=== PATIENT | male | born 1940 | race Caucasian/White ===

== ENCOUNTER 2019-01-14 11:59 | Observation (INO) | payer MEDICARE ==
[2019-01-14] MEDS ORDERED: Sodium Chloride 0.9% 10 ML Syringe FLUSH PRN (12:07)
[2019-01-14] MEDS ORDERED: Nitroglycerin 2% Oint 1 GM UD Packet TOP ONE (12:07)
[2019-01-14] MEDS ORDERED: Sodium Chloride 0.9% 2.5 ML Syringe FLUSH PRN (12:07)
--- NOTE | 2019-01-14 12:10 | EDM.PDOC ---
ED HPI GENERAL MEDICAL PROBLEM - General Chief Complaint: Chest Pain Stated Complaint: POSSIBLE HEART ATTACK Time Seen by Provider: 01/14/19 12:05 - History of Present Illness INITIAL COMMENTS - FREE TEXT/NARRATIVE: HISTORY AND PHYSICAL: History of present illness: Patient is a 78-year-old white male with a history of coronary artery disease including prior myocardial infarction presents with concern of substernal chest tightness with associated diaphoresis that awoke him from sleep he took one nitroglycerin and this decreased significantly still is mild discomfort on arrival here he states improved dramatically patient took aspirin prior to arrival Review of systems: As per history of present illness and below otherwise all systems reviewed and negative. Past medical history: As per history of present illness and as reviewed below otherwise noncontributory. Surgical history: As per history of present illness and as reviewed below otherwise noncontributory. Social history: No reported history of drug or alcohol abuse. Family history: As per history of present illness and as reviewed below otherwise noncontributory. Physical exam: HEENT: Atraumatic, normocephalic, pupils reactive, negative for conjunctival pallor or scleral icterus, mucous membranes moist, throat clear, neck supple, nontender, trachea midline. Lungs: Clear to auscultation, breath sounds equal bilaterally, chest nontender. Heart: S1S2, regular, negative for clicks, rubs, or JVD. Abdomen: Soft, nondistended, nontender. Negative for masses or hepatosplenomegaly. Negative for costovertebral tenderness. Pelvis: Stable nontender. Genitourinary: Deferred. Rectal: Deferred. Extremities: Atraumatic, negative for cords or calf pain. Neurovascular unremarkable. Neuro: Awake, alert, oriented. Cranial nerves II through XII unremarkable. Cerebellum unremarkable. Motor and sensory unremarkable throughout. Exam nonfocal. Diagnostics: CBC CMP. Troponin PT/INR chest x-ray EKG Therapeutics: IV O2 monitor Nitropaste 1 inch to chest wall Impression: 1 chest pain #2 history of prior DE Definitive disposition and diagnosis as appropriate pending reevaluation and review of above. - Related Data Allergies Allergy/AdvReac Type Severity Reaction Status Date / Time No Known Allergies Allergy Verified 01/14/19 12:09 Home Meds: Home Meds . [Unable to Verify Home Med List] 01/14/19 [History] ED ROS GENERAL - Review of Systems Review Of Systems: ROS reveals no pertinent complaints other than HPI. ED EXAM, GENERAL - Physical Exam Exam: See Below (See dictation) Course - Vital Signs Last Recorded V/S: Last Vital Signs Temp 35.8 C 01/14/19 12:04 Pulse 77 01/14/19 12:35 Resp 13 01/14/19 12:35 BP 93/52 L 01/14/19 12:35 Pulse Ox 97 01/14/19 12:35 - Orders/Labs/Meds Orders: Active Orders 24 hr Category Date Time Status Cardiac Monitoring [RC] . DIRECTED Care 01/14/19 12:07 Active EKG Documentation Completion [RC] STAT Care 01/14/19 12:07 Active Oxygen Therapy, ED [RC] ASDIRECTED Care 01/14/19 12:07 Active Pulse Oximetry [RC] ASDIRECTED Care 01/14/19 12:07 Active Sodium Chloride 0.9% [Normal Saline] 1,000 ml Med 01/14/19 12:15 Active IV STAT Sodium Chloride 0.9% [Saline Flush] Med 01/14/19 12:07 Active 10 ml FLUSH ASDIRECTED PRN Sodium Chloride 0.9% [Saline Flush] Med 01/14/19 12:07 Active 2.5 ml FLUSH ASDIRECTED PRN Saline Lock Insert [OM.PC] Stat Oth 01/14/19 12:07 Ordered Medication Orders Sodium Chloride (Normal Saline) 1,000 mls @ 125 mls/hr IV STAT ANNA Last Admin: 01/14/19 12:14 Dose: 125 mls/hr Sodium Chloride (Saline Flush) 10 ml FLUSH ASDIRECTED PRN PRN Reason: Keep Vein Open Last Admin: 01/14/19 12:14 Dose: 10 ml Sodium Chloride (Saline Flush) 2.5 ml FLUSH ASDIRECTED PRN PRN Reason: Keep Vein Open Last Admin: 01/14/19 12:14 Dose: 2.5 ml Labs: Laboratory Tests 01/14/19 01/14/19 01/14/19 Range/Units 12:03 12:03 12:03 WBC 9.83 (4.0-11.0) K/uL RBC 4.50 (4.50-5.90) M/uL Hgb 14.2 (13.0-17.0) g/dL Hct 42.3 (38.0-50.0) % MCV 94.0 (80.0-98.0) fL MCH 31.6 (27.0-32.0) pg MCHC 33.6 (31.0-37.0) g/dL RDW Std Deviation 47.2 (28.0-62.0) fl RDW Coeff of Augusto 14 (11.0-15.0) % Plt Count 140 L (150-400) K/uL MPV 11.00 (7.40-12.00) fL Neut % (Auto) 69.3 (48.0-80.0) % Lymph % (Auto) 17.9 (16.0-40.0) % [place] % (Auto) 10.4 (0.0-15.0) % Eos % (Auto) 2.2 (0.0-7.0) % Baso % (Auto) 0.2 (0.0-1.5) % Neut # (Auto) 6.8 H (1.4-5.7) K/uL Lymph # (Auto) 1.8 (0.6-2.4) K/uL [place] # (Auto) 1.0 H (0.0-0.8) K/uL Eos # (Auto) 0.2 (0.0-0.7) K/uL Baso # (Auto) 0.0 (0.0-0.1) K/uL Nucleated RBC % 0.0 /100WBC Nucleated RBCs # 0 K/uL INR 0.97 Sodium 141 (136-148) mmol/L Potassium 3.7 (3.5-5.1) mmol/L Chloride 109 H (98-107) mmol/L Carbon Dioxide 20.6 L (21.0-32.0) mmol/L BUN 15 (7.0-18.0) mg/dL Creatinine 1.1 (0.8-1.3) mg/dL Est Cr Clr Drug Dosing 52.68 mL/min Estimated GFR (MDRD) > 60.0 ml/min Glucose 121 H (74-106) mg/dL Calcium 8.9 (8.5-10.1) mg/dL Total Bilirubin 4.3 H (0.2-1.0) mg/dL AST 240 H (15-37) IU/L ALT 321 H (14-63) IU/L Alkaline Phosphatase 294 H (46-116) U/L Troponin I < 0.050 (0.000-0.056) ng/mL Total Protein 7.0 (6.4-8.2) g/dL Albumin 3.2 L (3.4-5.0) g/dL Globulin 3.8 (2.6-4.0) g/dL Albumin/Globulin Ratio 0.8 L (0.9-1.6) Meds: Medications Generic Name Dose Route Start Last Admin Trade Name Freq PRN Reason Stop Dose Admin Sodium Chloride 1,000 mls @ 125 mls/hr 01/14/19 12:15 01/14/19 12:14 Normal Saline IV 125 mls/hr STAT ANNA Administration Sodium Chloride 10 ml 01/14/19 12:07 01/14/19 12:14 Saline Flush FLUSH 10 ml ASDIRECTED PRN Administration Keep Vein Open Sodium Chloride 2.5 ml 01/14/19 12:07 01/14/19 12:14 Saline Flush FLUSH 2.5 ml ASDIRECTED PRN Administration Keep Vein Open Discontinued Medications Generic Name Dose Route Start Last Admin Trade Name Freq PRN Reason Stop Dose Admin Nitroglycerin 1 gm 01/14/19 12:07 01/14/19 12:14 Nitro-Bid 2% TOP 01/14/19 12:08 1 gm ONETIME ONE Administration Departure - Departure Time of Disposition: 13:19 Disposition: Refer to Observation Condition: Good Clinical Impression: Chest pain, Elevated liver function tests - Discharge Information Forms: ED Department Discharge - My Orders Last 24 Hours: My Active Orders 01/14/19 12:07 Cardiac Monitoring [RC] . DIRECTED EKG Documentation Completion [RC] STAT Oxygen Therapy, ED [RC] ASDIRECTED Pulse Oximetry [RC] ASDIRECTED Sodium Chloride 0.9% [Saline Flush] 10 ml FLUSH ASDIRECTED PRN Sodium Chloride 0.9% [Saline Flush] 2.5 ml FLUSH ASDIRECTED PRN Saline Lock Insert [OM.PC] Stat 01/14/19 12:15 Sodium Chloride 0.9% [Normal Saline] 1,000 ml IV STAT - Assessment/Plan Last 24 Hours: My Active Orders 01/14/19 12:07 Cardiac Monitoring [RC] . DIRECTED EKG Documentation Completion [RC] STAT Oxygen Therapy, ED [RC] ASDIRECTED Pulse Oximetry [RC] ASDIRECTED Sodium Chloride 0.9% [Saline Flush] 10 ml FLUSH ASDIRECTED PRN Sodium Chloride 0.9% [Saline Flush] 2.5 ml FLUSH ASDIRECTED PRN Saline Lock Insert [OM.PC] Stat 01/14/19 12:15 Sodium Chloride 0.9% [Normal Saline] 1,000 ml IV STAT
[2019-01-14] MEDS ORDERED: Sodium Chloride 0.9% 1,000 ML IV SCH (12:15)
[2019-01-14 12:42] LABS: CHLORIDE,CL 109 mmol/L (98-107); SODIUM,NA 141 mmol/L (136-148)
--- NOTE | 2019-01-14 13:09 | CR ---
EXAMINATION: Portable chest radiograph. HISTORY: Shortness of breath. FINDINGS: The trachea is midline. The heart is normal in size. There is a fullness within the right infrahilar region. No pulmonary infiltrates, effusions or pneumothorax. Osseous structures appear unremarkable. IMPRESSION: 1. No definite acute cardiopulmonary process. 2. Fullness of the right infrahilar region, correlation with a chest CT may be beneficial.
[2019-01-14] MEDS ORDERED: Ondansetron 4 MG/2 ML SDV IVPUSH PRN (15:38)
--- NOTE | 2019-01-14 15:47 | PCM.HP ---
H&P History of Present Illness - General Date of Service: 01/14/19 Admit Problem/Dx: Admission Diagnosis/Problem Admission Diagnosis/Problem Chest pain Source of Information: Patient History Limitations: Reports: No Limitations - History of Present Illness Initial Comments - Free Text/Narative: This 78 year old male with pmh of CAD with stenting in 2016, HTN, BPH presented to the ED with complaints of chest pain that started a couple days ago and has progressively worsened. He reports the pain starts in his abdomen and moves up to his chest. He denies fevers or chills, no other abdominal pain, no nausea or vomiting. No black or bloody BMs. He denies urinary concerns. He denies alcohol use and no Tylenol use. he denies having gallbladder issues and no cancer history for him. He reports the pain just went away, he is unsure what helped it , "something they did in the ED." He reports his TX was pain in his left shoulder and this does not feel like that. He has been eating and drinking just fine, no distension or bloating after eating. In the ED no leukocytosis noted, Platelets 140, INR 0.97, Cl 109, glucose 121, Bilirubin 4.3 AST 240, ALT 321, Alk phos 294. EKG SR with no acute ST changes. He was given nitro paste in the ED, pressures dropped to 80-90/40-50s. NS 125 given as well. CXR reports fullness to R infrahilar region, recommend CT to further evaluate. he will be admitted with chest pain and elevated LFTs. Mid-Sternal Chest Pain Score (Numeric/FACES): 5 - Related Data Allergies/Adverse Reactions: Allergies Allergy/AdvReac Type Severity Reaction Status Date / Time No Known Allergies Allergy Verified 01/14/19 16:22 Home Medications: Home Meds Aspirin [Low Dose Aspirin EC] 81 mg PO DAILY #30 tablet. 01/14/19 [Rx] Past Medical History HEENT History: Reports: Hard of Hearing Cardiovascular History: Reports: CAD, Hypertension, TX, Stents Respiratory History: Reports: None. Denies: Asthma, COPD Gastrointestinal History: Reports: None. Denies: GERD, Hepatitis Genitourinary History: Reports: BPH, Renal Calculus Musculoskeletal History: Reports: None Neurological History: Reports: None. Denies: CVA, TIA Endocrine/Metabolic History: Denies: Diabetes, Type II, Hypothyroidism - Infectious Disease History Infectious Disease History: Reports: Chicken Pox, Measles, Mumps - Past Surgical History Cardiovascular Surgical History: Reports: Coronary Artery Stent Social & Family History - Family History Family Medical History: Noncontributory Cardiac: Reports: TX Other Cardiac Family History: Both parents and all 7 siblings have had TX's. - Tobacco Use Smoking Status *Q: Never Smoker - Caffeine Use Caffeine Use: Reports: Coffee Other Caffeine Use: 2 cups/day - Alcohol Use Alcohol Use History: No - Recreational Drug Use Recreational Drug Use: No - Living Situation & Occupation Living situation: Reports: Occupation: Retired H&P Review of Systems - Review of Systems: Review Of Systems: See Below General: Reports: No Symptoms. Denies: Fever, Chills, Malaise, Weakness HEENT: Reports: No Symptoms. Denies: Headaches, Sinus Congestion Pulmonary: Reports: Shortness of Breath (intermittent with pain) Cardiovascular: Reports: Chest Pain Gastrointestinal: Reports: Abdominal Pain (pain starts in abdomen and moves up to chest). Denies: Black Stool, Bloody Stool, Diarrhea, Decreased Appetite, Distension, Nausea, Vomiting Genitourinary: Reports: No Symptoms. Denies: Dysuria, Frequency, Burning, Retention, Flank Pain Skin: Reports: No Symptoms Psychiatric: Reports: No Symptoms Neurological: Reports: No Symptoms Hematologic/Lymphatic: Reports: No Symptoms Immunologic: Reports: No Symptoms Exam - Exam Exam: See Below - Vital Signs Vital Signs: Last Vital Signs Temp 97.6 F 01/14/19 15:00 Pulse 58 L 01/14/19 15:00 Resp 16 01/14/19 15:00 BP 106/82 01/14/19 15:00 Pulse Ox 98 01/14/19 15:00 Weight: 85.1 kg - Exam General: Alert, Oriented, Cooperative HEENT: Mucosa Moist & [place], Posterior Pharynx Clear, Scleral Icterus Neck: Supple, Trachea Midline Lungs: Clear to Auscultation, Normal Respiratory Effort Cardiovascular: Regular Rate, Regular Rhythm, Normal S1, Normal S2. No: Systolic Murmur GI/Abdominal Exam: Normal Bowel Sounds, Soft, Non-Tender, No Distention. No: Distended Extremities: Normal Inspection, Normal Range of Motion, Non-Tender, No Pedal Edema Neuro Extensive - Mental Status: Alert, Oriented x3 Neuro Extensive - Motor, Sensory, Reflexes: CN II-XII Intact - Patient Data Lab Results Last 24 hrs: Laboratory Results - last 24 hr 01/14/19 01/14/19 01/14/19 Range/Units 12:03 12:03 12:03 WBC 9.83 (4.0-11.0) K/uL RBC 4.50 (4.50-5.90) M/uL Hgb 14.2 (13.0-17.0) g/dL Hct 42.3 (38.0-50.0) % MCV 94.0 (80.0-98.0) fL MCH 31.6 (27.0-32.0) pg MCHC 33.6 (31.0-37.0) g/dL RDW Std Deviation 47.2 (28.0-62.0) fl RDW Coeff of [place]o 14 (11.0-15.0) % Plt Count 140 L (150-400) K/uL MPV 11.00 (7.40-12.00) fL Neut % (Auto) 69.3 (48.0-80.0) % Lymph % (Auto) 17.9 (16.0-40.0) % [place] % (Auto) 10.4 (0.0-15.0) % Eos % (Auto) 2.2 (0.0-7.0) % Baso % (Auto) 0.2 (0.0-1.5) % Neut # (Auto) 6.8 H (1.4-5.7) K/uL Lymph # (Auto) 1.8 (0.6-2.4) K/uL [place] # (Auto) 1.0 H (0.0-0.8) K/uL Eos # (Auto) 0.2 (0.0-0.7) K/uL Baso # (Auto) 0.0 (0.0-0.1) K/uL Nucleated RBC % 0.0 /100WBC Nucleated RBCs # 0 K/uL INR 0.97 Sodium 141 (136-148) mmol/L Potassium 3.7 (3.5-5.1) mmol/L Chloride 109 H (98-107) mmol/L Carbon Dioxide 20.6 L (21.0-32.0) mmol/L BUN 15 (7.0-18.0) mg/dL Creatinine 1.1 (0.8-1.3) mg/dL Est Cr Clr Drug Dosing 52.68 mL/min Estimated GFR (MDRD) > 60.0 ml/min Glucose 121 H (74-106) mg/dL Calcium 8.9 (8.5-10.1) mg/dL Total Bilirubin 4.3 H (0.2-1.0) mg/dL AST 240 H (15-37) IU/L ALT 321 H (14-63) IU/L Alkaline Phosphatase 294 H (46-116) U/L Troponin I < 0.050 (0.000-0.056) ng/mL Total Protein 7.0 (6.4-8.2) g/dL Albumin 3.2 L (3.4-5.0) g/dL Globulin 3.8 (2.6-4.0) g/dL Albumin/Globulin Ratio 0.8 L (0.9-1.6) Result Diagrams: 01/14/19 12:03 01/14/19 12:03 EKG INTERPRETATION EKG Date: 01/14/19 Rhythm: NSR Rate (Beats/Min): 70 P-Wave: Present QRS: Normal ST-T: Normal - Problem List (1) Chest pain SNOMED Code(s): 47930316 ICD Code: R07.9 - CHEST PAIN, UNSPECIFIED Status: Acute Current Visit: Yes (2) Elevated liver function tests SNOMED Code(s): 041296053, 603847329 ICD Code: R94.5 - ABNORMAL RESULTS OF LIVER FUNCTION STUDIES Status: Acute Current Visit: Yes (3) Hyperbilirubinemia SNOMED Code(s): 42040515 ICD Code: E80.6 - OTHER DISORDERS OF BILIRUBIN METABOLISM Status: Acute Current Visit: Yes (4) CAD (coronary artery disease) SNOMED Code(s): 29128005 ICD Code: I25.10 - ATHSCL HEART DISEASE OF [place] CORONARY ARTERY W/O ANG PCTRS Status: Chronic Current Visit: Yes (5) History of coronary artery stent placement SNOMED Code(s): 918449019, 185051164 ICD Code: Z95.5 - PRESENCE OF CORONARY ANGIOPLASTY IMPLANT AND GRAFT Status : Chronic Current Visit: Yes (6) HTN (hypertension) SNOMED Code(s): 79014057 ICD Code: I10 - ESSENTIAL (PRIMARY) HYPERTENSION Status: Chronic Current Visit: Yes (7) Hx of myocardial infarction SNOMED Code(s): 051045729 ICD Code: I25.2 - OLD MYOCARDIAL INFARCTION Status: Chronic Current Visit : Yes Problem List Initiated/Reviewed/Updated: Yes Orders Last 24hrs: Active Orders 24 hr Category Date Time Status Patient Status [ADT] Stat ADT 01/14/19 13:22 Active Cardiac Monitoring [RC] . DIRECTED Care 01/14/19 12:07 Active Communication Order [RC] ROUTINE Care 01/14/19 15:39 Ordered Intake and Output [RC] QSHIFT Care 01/14/19 15:38 Ordered Oxygen Therapy [RC] PRN Care 01/14/19 15:38 Ordered Pulse Oximetry [RC] ASDIRECTED Care 01/14/19 12:07 Active Telemetry Monitoring [Cardiac Monitoring] [RC] . Care 01/14/19 15:36 Ordered DIRECTED Up ad Adriana [RC] ASDIRECTED Care 01/14/19 15:38 Ordered VTE/DVT Education [RC] PER UNIT ROUTINE Care 01/14/19 15:38 Ordered Vital Signs [RC] Q4H Care 01/14/19 15:38 Ordered Nothing per Oral Now Diet [DIET] Diet 01/14/19 Dinner Ordered Abdomen Ltd [US] Urgent Exams 01/14/19 14:25 Ordered ACETAMINOPHEN [CHEM] Routine Lab 01/14/19 15:37 Ordered AMYLASE [CHEM] Routine Lab 01/14/19 15:44 Ordered COMPREHENSIVE METABOLIC PN,CMP [CHEM] AM Lab 01/15/19 05:11 Ordered HEPATITIS PANEL (4) [REF] Routine Lab 01/14/19 15:36 Ordered LIPASE [CHEM] Routine Lab 01/14/19 15:44 Ordered TROPONIN I [CHEM] Q6H Lab 01/14/19 18:00 Ordered TROPONIN I [CHEM] Q6H Lab 01/15/19 00:00 Ordered Ondansetron [Zofran] Med 01/14/19 15:38 Ordered 4 mg IVPUSH Q4H PRN Sodium Chloride 0.9% @ 100 MLS/HR(1,000ml) Med 01/14/19 15:45 Ordered Sodium Chloride 0.9% [Normal Saline] 1,000 ml IV ASDIRECTED Sodium Chloride 0.9% [Saline Flush] Med 01/14/19 12:07 Active 10 ml FLUSH ASDIRECTED PRN Sodium Chloride 0.9% [Saline Flush] Med 01/14/19 12:07 Active 2.5 ml FLUSH ASDIRECTED PRN Saline Lock Insert [OM.PC] Stat Oth 01/14/19 12:07 Ordered Resuscitation Status Routine Resus Stat 01/14/19 15:38 Ordered Medication Orders Sodium Chloride (Normal Saline) 1,000 mls @ 100 mls/hr IV ASDIRECTED ANNA Ondansetron HCl (Zofran) 4 mg IVPUSH Q4H PRN PRN Reason: Nausea Sodium Chloride (Saline Flush) 10 ml FLUSH ASDIRECTED PRN PRN Reason: Keep Vein Open Last Admin: 01/14/19 12:14 Dose: 10 ml Sodium Chloride (Saline Flush) 2.5 ml FLUSH ASDIRECTED PRN PRN Reason: Keep Vein Open Last Admin: 01/14/19 12:14 Dose: 2.5 ml Assessment/Plan Comment:: This 78 year old male admitted with chest pain and elevated liver function tests 1. Chest pain: Monitor on telemetry, trend troponins. Remove nitro paste, BP 100 /60s. 2. Elevated LFTs: US of RUQ to further evaluate. Will obtain hepatitis panel, Tylenol level. As well as amylase and lipase. NPO for now until US exam reviewed. US shows cholelithiasis, will consult Dr Chiu. He recommends MRCP. 3. CAD: Continue home meds, is bringing list in. ASA and antiplatelet to be continued. 4. BPH: Continue home meds. Stable. 5. Chest Xray fullness: Chest CT with contrast to further evaluate. VTE prophylaxis: Heparin Dispo: 1-2 days.
--- NOTE | 2019-01-14 16:23 | US ---
EXAMINATION: Ultrasound the right upper quadrant HISTORY: Elevated LFTs COMPARISON: None TECHNIQUE: Grayscale and color Doppler imaging obtained. FINDINGS: The pancreas is not visualized. The liver is normal in contour and echotexture without a focal hepatic mass. Common bile duct measures 3 mm. Gallbladder wall thickness is normal. No pericholecystic fluid. Several stones are noted within the gallbladder. Right kidney measures at least 11.1 cm [id number] without evidence hydronephrosis. IMPRESSION: 1. Cholelithiasis, otherwise unremarkable right upper quadrant ultrasound.
[2019-01-14] MEDS: Heparin Sodium 5,000 Units/ML Vial SUBCUT SCH (18:11)
[2019-01-14] MEDS ORDERED: LORazepam 1 MG Tab PO ONE (18:20)
[2019-01-14] MEDS ORDERED: Iopamidol 755 Mg/ML 100 ML Bottle IVPUSH ONE (18:26)
[2019-01-14] MEDS ORDERED: Gadobenate Dimeglumine 529 MG/ML 20 ML SDV IVPUSH STA (18:50)
--- NOTE | 2019-01-14 20:35 | PCM.CONS ---
H&P History of Present Illness - General Date of Service: 01/14/19 Admit Problem/Dx: Admission Diagnosis/Problem Admission Diagnosis/Problem Chest pain Source of Information: Patient History Limitations: Reports: No Limitations - History of Present Illness Initial Comments - Free Text/Narative: 78 y/o gentleman admitted today with a 2 day history of abdominal pain that migrated to the chest. Today he thought he was having a heart attack and presented to the ER by private vehicle. History of CAD with stent X1. No nausea/vomiting. No food intolerances. Has not noticed any change in the color of his urine or stools. No unexplained weight loss. Has not noticed any change in skin color. Symptom Onset Date: 01/12/19 Duration of Symptoms: Reports: Day(s): Location: Reports: Chest, Abdomen Quality: Reports: Pressure Severity: Moderate Improves with: Reports: Rest Worsens with: Reports: None Associated Symptoms: Reports: Chest Pain. Denies: Confusion, Cough, cough w sputum, Diaphoresis, Fever/Chills, Loss of Appetite, Nausea/Vomiting Mid-Sternal Chest Pain Score (Numeric/FACES): 5 - Related Data Allergies/Adverse Reactions: Allergies Allergy/AdvReac Type Severity Reaction Status Date / Time No Known Allergies Allergy Verified 01/14/19 16:22 Home Medications: Home Meds Aspirin [Low Dose Aspirin EC] 81 mg PO DAILY #30 tablet. 01/14/19 [Rx] Doxazosin [Cardura] 2 mg PO DAILY 01/14/19 [History] Finasteride [Proscar] 5 mg PO DAILY 01/14/19 [History] Lisinopril [Prinivil] 5 mg PO DAILY 01/14/19 [History] Metoprolol Succinate 50 mg PO DAILY 01/14/19 [History] Nitroglycerin [Nitrostat] 0.4 mg PO ASDIRECTED PRN 01/14/19 [History] Omeprazole 10 mg PO ACBREAKFAST 01/14/19 [History] atorvaSTATin Calcium [Lipitor] 80 mg PO DAILY 01/14/19 [History] Past Medical History HEENT History: Reports: Hard of Hearing Cardiovascular History: Reports: CAD, Hypertension, DE, Stents Respiratory History: Reports: None. Denies: Asthma, COPD Gastrointestinal History: Reports: None. Denies: GERD, Hepatitis Genitourinary History: Reports: BPH, Renal Calculus Other Genitourinary History: Enlarged prostate, kidney stones Musculoskeletal History: Reports: None Neurological History: Reports: None. Denies: CVA, TIA Endocrine/Metabolic History: Denies: Diabetes, Type II, Hypothyroidism - Infectious Disease History Infectious Disease History: Reports: Chicken Pox, Measles, Mumps - Past Surgical History Cardiovascular Surgical History: Reports: Coronary Artery Stent Social & Family History - Family History Family Medical History: Noncontributory Cardiac: Reports: DE Other Cardiac Family History: Both parents and all 7 siblings have had DE's. GI: Denies: Cholelithiasis - Tobacco Use Smoking Status *Q: Never Smoker - Caffeine Use Caffeine Use: Reports: Coffee Other Caffeine Use: 2 cups/day - Recreational Drug Use Recreational Drug Use: No - Living Situation & Occupation Living situation: Reports: Occupation: Retired H&P Review of Systems - Review of Systems: Review Of Systems: See Below General: Denies: Fever, Chills, Malaise, Weakness, Decreased Appetite, Weight Loss HEENT: Denies: Dysphasia, Headaches, Hearing Changes, Vertigo, Visual Changes Pulmonary: Denies: Shortness of Breath, Wheezing Cardiovascular: Reports: Chest Pain. Denies: Palpitations, Dyspnea on Exertion , Lightheadedness, Syncope Gastrointestinal: Reports: Abdominal Pain. Denies: Anorexia, Black Stool, Bloody Stool, Constipation, Diarrhea, Decreased Appetite, Distension, Flatus, Hematemesis, Hematochezia, Melena Genitourinary: Denies: Dysuria, Frequency, Burning, Pain, Urgency, Flank Pain Musculoskeletal: Denies: Neck Pain, Shoulder Pain Skin: Reports: Jaundice. Denies: Mottled, Pallor, Diaphoresis Psychiatric: Reports: No Symptoms Neurological: Reports: No Symptoms Hematologic/Lymphatic: Reports: No Symptoms Immunologic: Reports: No Symptoms Exam - Exam Exam: See Below - Vital Signs Vital Signs: Last Vital Signs Temp 97.6 F 01/14/19 15:00 Pulse 58 L 01/14/19 15:00 Resp 16 01/14/19 15:00 BP 106/82 01/14/19 15:00 Pulse Ox 98 01/14/19 15:00 Weight: 187 lb 9.814 oz - Exam Quality Assessment: No: Supplemental Oxygen, Central Line/PICC General: Alert, Oriented, Cooperative HEENT: Conjunctiva Clear, EOMI, Pupils Equal, Pupils Reactive, Scleral Icterus, PERRLA Neck: Supple, Trachea Midline. No: Carotid Bruit Lungs: Clear to Auscultation, Normal Respiratory Effort Cardiovascular: Regular Rate, Regular Rhythm, Normal S1, Normal S2. No: Tachycardia, Systolic Murmur, Diastolic Murmur GI/Abdominal Exam: Normal Bowel Sounds, Soft, Non-Tender, No Organomegaly, No Distention, No Mass. No: Guarding, Rigid, Rebound (Male) Exam: No Hernia, Normal Inspection Rectal (Males) Exam: Deferred Back Exam: Normal Inspection Extremities: Normal Inspection, Normal Range of Motion, Non-Tender Peripheral Pulses: 4+: Posterior Tibial (L), Posterior Tibial (R), Dorsalis Pedis (L), Dorsalis Pedis (R) Skin: Warm, Dry, Intact Neurological: Cranial Nerves Intact, Reflexes Equal Bilateral Psychiatric: Alert, Normal Affect, Normal Mood - Patient Data Lab Results Last 24 hrs: Laboratory Results - last 24 hr 01/14/19 01/14/19 01/14/19 Range/Units 12:03 12:03 12:03 WBC 9.83 (4.0-11.0) K/uL RBC 4.50 (4.50-5.90) M/uL Hgb 14.2 (13.0-17.0) g/dL Hct 42.3 (38.0-50.0) % MCV 94.0 (80.0-98.0) fL MCH 31.6 (27.0-32.0) pg MCHC 33.6 (31.0-37.0) g/dL RDW Std Deviation 47.2 (28.0-62.0) fl RDW Coeff of Augusto 14 (11.0-15.0) % Plt Count 140 L (150-400) K/uL MPV 11.00 (7.40-12.00) fL Neut % (Auto) 69.3 (48.0-80.0) % Lymph % (Auto) 17.9 (16.0-40.0) % [place] % (Auto) 10.4 (0.0-15.0) % Eos % (Auto) 2.2 (0.0-7.0) % Baso % (Auto) 0.2 (0.0-1.5) % Neut # (Auto) 6.8 H (1.4-5.7) K/uL Lymph # (Auto) 1.8 (0.6-2.4) K/uL [place] # (Auto) 1.0 H (0.0-0.8) K/uL Eos # (Auto) 0.2 (0.0-0.7) K/uL Baso # (Auto) 0.0 (0.0-0.1) K/uL Nucleated RBC % 0.0 /100WBC Nucleated RBCs # 0 K/uL INR 0.97 Sodium 141 (136-148) mmol/L Potassium 3.7 (3.5-5.1) mmol/L Chloride 109 H (98-107) mmol/L Carbon Dioxide 20.6 L (21.0-32.0) mmol/L BUN 15 (7.0-18.0) mg/dL Creatinine 1.1 (0.8-1.3) mg/dL Est Cr Clr Drug Dosing 52.68 mL/min Estimated GFR (MDRD) > 60.0 ml/min Glucose 121 H (74-106) mg/dL Calcium 8.9 (8.5-10.1) mg/dL Total Bilirubin 4.3 H (0.2-1.0) mg/dL AST 240 H (15-37) IU/L ALT 321 H (14-63) IU/L Alkaline Phosphatase 294 H (46-116) U/L Troponin I < 0.050 (0.000-0.056) ng/mL Total Protein 7.0 (6.4-8.2) g/dL Albumin 3.2 L (3.4-5.0) g/dL Globulin 3.8 (2.6-4.0) g/dL Albumin/Globulin Ratio 0.8 L (0.9-1.6) Amylase (25-115) U/L Lipase (73-393) U/L Acetaminophen ug/mL 01/14/19 01/14/19 01/14/19 Range/Units 16:36 16:36 18:16 WBC (4.0-11.0) K/uL RBC (4.50-5.90) M/uL Hgb (13.0-17.0) g/dL Hct (38.0-50.0) % MCV (80.0-98.0) fL MCH (27.0-32.0) pg MCHC (31.0-37.0) g/dL RDW Std Deviation (28.0-62.0) fl RDW Coeff of Augusto (11.0-15.0) % Plt Count (150-400) K/uL MPV (7.40-12.00) fL Neut % (Auto) (48.0-80.0) % Lymph % (Auto) (16.0-40.0) % [place] % (Auto) (0.0-15.0) % Eos % (Auto) (0.0-7.0) % Baso % (Auto) (0.0-1.5) % Neut # (Auto) (1.4-5.7) K/uL Lymph # (Auto) (0.6-2.4) K/uL [place] # (Auto) (0.0-0.8) K/uL Eos # (Auto) (0.0-0.7) K/uL Baso # (Auto) (0.0-0.1) K/uL Nucleated RBC % /100WBC Nucleated RBCs # K/uL INR Sodium (136-148) mmol/L Potassium (3.5-5.1) mmol/L Chloride (98-107) mmol/L Carbon Dioxide (21.0-32.0) mmol/L BUN (7.0-18.0) mg/dL Creatinine (0.8-1.3) mg/dL Est Cr Clr Drug Dosing mL/min Estimated GFR (MDRD) ml/min Glucose (74-106) mg/dL Calcium (8.5-10.1) mg/dL Total Bilirubin (0.2-1.0) mg/dL AST (15-37) IU/L ALT (14-63) IU/L Alkaline Phosphatase (46-116) U/L Troponin I < 0.050 (0.000-0.056) ng/mL Total Protein (6.4-8.2) g/dL Albumin (3.4-5.0) g/dL Globulin (2.6-4.0) g/dL Albumin/Globulin Ratio (0.9-1.6) Amylase 243 H (25-115) U/L Lipase 4458 H (73-393) U/L Acetaminophen <2.0 ug/mL Result Diagrams: 01/14/19 12:03 01/14/19 12:03 Consult PN Assessment/Plan Procedures: Procedures ASSAY OF PSA TOTAL (03/08/18) METABOLIC PANEL TOTAL CA (05/18/14) ROUTINE VENIPUNCTURE (03/08/18) (1) Chest pain SNOMED Code(s): 69004913 Code(s): R07.9 - CHEST PAIN, UNSPECIFIED Priority: Low Current Visit: Yes (2) Elevated liver function tests SNOMED Code(s): 004491430, 665473530 Code(s): R94.5 - ABNORMAL RESULTS OF LIVER FUNCTION STUDIES Priority: High Current Visit: Yes (3) Hyperbilirubinemia SNOMED Code(s): 65238424 Code(s): E80.6 - OTHER DISORDERS OF BILIRUBIN METABOLISM Priority: High Current Visit: Yes (4) CAD (coronary artery disease) SNOMED Code(s): 10897582 Code(s): I25.10 - ATHSCL HEART DISEASE OF [place] CORONARY ARTERY W/O ANG PCTRS Priority: Medium Current Visit: Yes Qualifiers: [place] vs. transplanted heart: [place] heart Associated angina: without angina (5) HTN (hypertension) SNOMED Code(s): 15173994 Code(s): I10 - ESSENTIAL (PRIMARY) HYPERTENSION Current Visit: Yes (6) History of coronary artery stent placement SNOMED Code(s): 316058646, 010452139 Code(s): Z95.5 - PRESENCE OF CORONARY ANGIOPLASTY IMPLANT AND GRAFT Priority: High Current Visit: Yes (7) Hx of myocardial infarction SNOMED Code(s): 911981326 Code(s): I25.2 - OLD MYOCARDIAL INFARCTION Priority: Low Current Visit: Yes (8) Cholelithiasis SNOMED Code(s): 439776005 Code(s): K80.20 - CALCULUS OF GALLBLADDER W/O CHOLECYSTITIS W/O OBSTRUCTION Current Visit: Yes Qualifiers: Cholelithiasis location: gallbladder Cholecystitis presence: without cholecystitis Biliary obstruction: with biliary obstruction Qualified Code(s ): K80.21 - Calculus of gallbladder without cholecystitis with obstruction Problem List Initiated/Reviewed/Updated: Yes Plan: Given his elevated LFTs and hyperbilirubinemia, despite no dilatation of bile duct on ultrasound, would prefer to see an MRCP before making any recommendations. Clinically he is very stable and shows no underlying cholecystitis. Pending MRCP, may consider elective cholecystectomy after biochemical abnormalities are resolved.
[2019-01-14] MEDS: Sodium Chloride 0.9% 1,000 ML IV SCH (22:14)
[2019-01-15] MEDS: Heparin Sodium 5,000 Units/ML Vial SUBCUT SCH ×2 (05:04→17:04)
[2019-01-15 06:01] LABS: CHLORIDE,CL 110 mmol/L (98-107); SODIUM,NA 142 mmol/L (136-148)
[2019-01-15] MEDS: Sodium Chloride 0.9% 1,000 ML IV SCH ×3 (08:33→23:04)
[2019-01-15] MEDS: Metoprolol Succinate 50 MG Tab.ER PO SCH (08:34)
[2019-01-15] MEDS: Omeprazole 20 MG Cap.CR PO SCH (08:34)
[2019-01-15] MEDS: Lisinopril 5 MG Tab PO SCH (08:35)
[2019-01-15] MEDS: Doxazosin 2 MG Tab PO SCH (08:35)
[2019-01-15] MEDS: Finasteride 5 MG Tab PO SCH ×2 (08:36→08:37)
--- NOTE | 2019-01-15 08:54 | CT ---
INDICATION: Right infrahilar fullness. TECHNIQUE: A CT volumetric acquisition was performed of the thorax during intravenous infusion of 75 cc of Isovue-370 nonionic intravenous contrast. FINDINGS: CT images demonstrate no evidence of lymphadenopathy within the right hilum or central mediastinum. Atherosclerotic calcifications are evident within the aortic arch and coronary arteries. Heart size appears normal. Patient has a moderate size hiatal hernia which may account for the increased density changes on chest x-ray. There are also several right-sided vertebral osteophytes projecting off the mid to lower thoracic spine. There are no suspicious nodules, masses or infiltrates. There is no evidence of bronchiectasis, emphysema or pulmonary fibrosis. IMPRESSION: Moderate size sliding hiatal hernia. No evidence of a suspicious nodule, mass or enlarged mediastinal lymph node. Please note that all CT scans at this facility use dose modulation, iterative reconstruction, and/or weight-based dosing when appropriate to reduce radiation dose to as low as reasonably achievable. Dictated by Barry Gonzalez MD @ Jan 15 2019 8:46AM Signed by Dr. Barry Gonzalez @ Jan 15 2019 8:52AM
--- NOTE | 2019-01-15 08:59 | PCM.PN ---
- General Info Date of Service: 01/15/19 Admission Dx/Problem (Free Text): Admission Diagnosis/Problem Admission Diagnosis/Problem Cholelithiasis, pancreatitis Subjective Update: No further pain overnight. feeling good this morning. No other complaints. at bedside, updated on awaiting imaging reports. Functional Status: Reports: Pain Controlled, Tolerating Diet, Ambulating, Urinating - Review of Systems General: Reports: No Symptoms. Denies: Fever, Weakness, Fatigue HEENT: Reports: No Symptoms. Denies: Sore Throat Pulmonary: Reports: No Symptoms. Denies: Shortness of Breath Cardiovascular: Reports: No Symptoms. Denies: Chest Pain, Palpitations, Edema Gastrointestinal: Reports: No Symptoms. Denies: Abdominal Pain, Nausea, Vomiting Genitourinary: Reports: No Symptoms. Denies: Dysuria, Frequency Musculoskeletal: Reports: No Symptoms Skin: Reports: No Symptoms Neurological: Reports: No Symptoms Psychiatric: Reports: No Symptoms - Patient Data Vitals - Most Recent: Last Vital Signs Temp 97.5 F 01/15/19 07:44 Pulse 72 01/15/19 08:34 Resp 15 01/15/19 07:44 BP 143/71 H 01/15/19 08:35 Pulse Ox 98 01/15/19 07:44 Weight - Most Recent: 85.1 kg I&O - Last 24 Hours: Intake & Output 01/14/19 01/15/19 01/15/19 22:59 06:59 14:59 Intake Total 0 918 Balance 0 918 Lab Results Last 24 Hours: Laboratory Results - last 24 hr 01/14/19 01/14/19 01/14/19 Range/Units 12:03 12:03 12:03 WBC 9.83 (4.0-11.0) K/uL RBC 4.50 (4.50-5.90) M/uL Hgb 14.2 (13.0-17.0) g/dL Hct 42.3 (38.0-50.0) % MCV 94.0 (80.0-98.0) fL MCH 31.6 (27.0-32.0) pg MCHC 33.6 (31.0-37.0) g/dL RDW Std Deviation 47.2 (28.0-62.0) fl RDW Coeff of Augusto 14 (11.0-15.0) % Plt Count 140 L (150-400) K/uL MPV 11.00 (7.40-12.00) fL Neut % (Auto) 69.3 (48.0-80.0) % Lymph % (Auto) 17.9 (16.0-40.0) % Barry % (Auto) 10.4 (0.0-15.0) % Eos % (Auto) 2.2 (0.0-7.0) % Baso % (Auto) 0.2 (0.0-1.5) % Neut # (Auto) 6.8 H (1.4-5.7) K/uL Lymph # (Auto) 1.8 (0.6-2.4) K/uL [place] # (Auto) 1.0 H (0.0-0.8) K/uL Eos # (Auto) 0.2 (0.0-0.7) K/uL Baso # (Auto) 0.0 (0.0-0.1) K/uL Nucleated RBC % 0.0 /100WBC Nucleated RBCs # 0 K/uL INR 0.97 Sodium 141 (136-148) mmol/L Potassium 3.7 (3.5-5.1) mmol/L Chloride 109 H (98-107) mmol/L Carbon Dioxide 20.6 L (21.0-32.0) mmol/L BUN 15 (7.0-18.0) mg/dL Creatinine 1.1 (0.8-1.3) mg/dL Est Cr Clr Drug Dosing 52.68 mL/min Estimated GFR (MDRD) > 60.0 ml/min Glucose 121 H (74-106) mg/dL Calcium 8.9 (8.5-10.1) mg/dL Total Bilirubin 4.3 H (0.2-1.0) mg/dL AST 240 H (15-37) IU/L ALT 321 H (14-63) IU/L Alkaline Phosphatase 294 H (46-116) U/L Troponin I < 0.050 (0.000-0.056) ng/mL Total Protein 7.0 (6.4-8.2) g/dL Albumin 3.2 L (3.4-5.0) g/dL Globulin 3.8 (2.6-4.0) g/dL Albumin/Globulin Ratio 0.8 L (0.9-1.6) Amylase (25-115) U/L Lipase (73-393) U/L Acetaminophen ug/mL 01/14/19 01/14/19 01/14/19 Range/Units 16:36 16:36 18:16 WBC (4.0-11.0) K/uL RBC (4.50-5.90) M/uL Hgb (13.0-17.0) g/dL Hct (38.0-50.0) % MCV (80.0-98.0) fL MCH (27.0-32.0) pg MCHC (31.0-37.0) g/dL RDW Std Deviation (28.0-62.0) fl RDW Coeff of Augusto (11.0-15.0) % Plt Count (150-400) K/uL MPV (7.40-12.00) fL Neut % (Auto) (48.0-80.0) % Lymph % (Auto) (16.0-40.0) % [place] % (Auto) (0.0-15.0) % Eos % (Auto) (0.0-7.0) % Baso % (Auto) (0.0-1.5) % Neut # (Auto) (1.4-5.7) K/uL Lymph # (Auto) (0.6-2.4) K/uL [place] # (Auto) (0.0-0.8) K/uL Eos # (Auto) (0.0-0.7) K/uL Baso # (Auto) (0.0-0.1) K/uL Nucleated RBC % /100WBC Nucleated RBCs # K/uL INR Sodium (136-148) mmol/L Potassium (3.5-5.1) mmol/L Chloride (98-107) mmol/L Carbon Dioxide (21.0-32.0) mmol/L BUN (7.0-18.0) mg/dL Creatinine (0.8-1.3) mg/dL Est Cr Clr Drug Dosing mL/min Estimated GFR (MDRD) ml/min Glucose (74-106) mg/dL Calcium (8.5-10.1) mg/dL Total Bilirubin (0.2-1.0) mg/dL AST (15-37) IU/L ALT (14-63) IU/L Alkaline Phosphatase (46-116) U/L Troponin I < 0.050 (0.000-0.056) ng/mL Total Protein (6.4-8.2) g/dL Albumin (3.4-5.0) g/dL Globulin (2.6-4.0) g/dL Albumin/Globulin Ratio (0.9-1.6) Amylase 243 H (25-115) U/L Lipase 4458 H (73-393) U/L Acetaminophen <2.0 ug/mL 01/15/19 01/15/19 01/15/19 Range/Units 00:28 05:10 05:10 WBC 8.80 (4.0-11.0) K/uL RBC 3.93 L (4.50-5.90) M/uL Hgb 12.2 L (13.0-17.0) g/dL Hct 37.9 L (38.0-50.0) % MCV 96.4 (80.0-98.0) fL MCH 31.0 (27.0-32.0) pg MCHC 32.2 (31.0-37.0) g/dL RDW Std Deviation 48.9 (28.0-62.0) fl RDW Coeff of [place]o 14 (11.0-15.0) % Plt Count 122 L (150-400) K/uL MPV 11.80 (7.40-12.00) fL Neut % (Auto) 66.8 (48.0-80.0) % Lymph % (Auto) 18.2 (16.0-40.0) % Barry % (Auto) 11.6 (0.0-15.0) % Eos % (Auto) 3.2 (0.0-7.0) % Baso % (Auto) 0.2 (0.0-1.5) % Neut # (Auto) 5.9 H (1.4-5.7) K/uL Lymph # (Auto) 1.6 (0.6-2.4) K/uL Barry # (Auto) 1.0 H (0.0-0.8) K/uL Eos # (Auto) 0.3 (0.0-0.7) K/uL Baso # (Auto) 0.0 (0.0-0.1) K/uL Nucleated RBC % 0.0 /100WBC Nucleated RBCs # 0 K/uL INR Sodium 142 (136-148) mmol/L Potassium 3.9 (3.5-5.1) mmol/L Chloride 110 H (98-107) mmol/L Carbon Dioxide 21.0 (21.0-32.0) mmol/L BUN 15 (7.0-18.0) mg/dL Creatinine 1.1 (0.8-1.3) mg/dL Est Cr Clr Drug Dosing 52.68 mL/min Estimated GFR (MDRD) > 60.0 ml/min Glucose 77 (74-106) mg/dL Calcium 8.3 L (8.5-10.1) mg/dL Total Bilirubin 1.9 H (0.2-1.0) mg/dL AST 136 H (15-37) IU/L ALT 235 H (14-63) IU/L Alkaline Phosphatase 235 H (46-116) U/L Troponin I < 0.050 (0.000-0.056) ng/mL Total Protein 6.0 L (6.4-8.2) g/dL Albumin 2.7 L (3.4-5.0) g/dL Globulin 3.3 (2.6-4.0) g/dL Albumin/Globulin Ratio 0.8 L (0.9-1.6) Amylase (25-115) U/L Lipase (73-393) U/L Acetaminophen ug/mL 01/15/19 Range/Units 05:10 WBC (4.0-11.0) K/uL RBC (4.50-5.90) M/uL Hgb (13.0-17.0) g/dL Hct (38.0-50.0) % MCV (80.0-98.0) fL MCH (27.0-32.0) pg MCHC (31.0-37.0) g/dL RDW Std Deviation (28.0-62.0) fl RDW Coeff of Augusto (11.0-15.0) % Plt Count (150-400) K/uL MPV (7.40-12.00) fL Neut % (Auto) (48.0-80.0) % Lymph % (Auto) (16.0-40.0) % Barry % (Auto) (0.0-15.0) % Eos % (Auto) (0.0-7.0) % Baso % (Auto) (0.0-1.5) % Neut # (Auto) (1.4-5.7) K/uL Lymph # (Auto) (0.6-2.4) K/uL Barry # (Auto) (0.0-0.8) K/uL Eos # (Auto) (0.0-0.7) K/uL Baso # (Auto) (0.0-0.1) K/uL Nucleated RBC % /100WBC Nucleated RBCs # K/uL INR Sodium (136-148) mmol/L Potassium (3.5-5.1) mmol/L Chloride (98-107) mmol/L Carbon Dioxide (21.0-32.0) mmol/L BUN (7.0-18.0) mg/dL Creatinine (0.8-1.3) mg/dL Est Cr Clr Drug Dosing mL/min Estimated GFR (MDRD) ml/min Glucose (74-106) mg/dL Calcium (8.5-10.1) mg/dL Total Bilirubin (0.2-1.0) mg/dL AST (15-37) IU/L ALT (14-63) IU/L Alkaline Phosphatase (46-116) U/L Troponin I (0.000-0.056) ng/mL Total Protein (6.4-8.2) g/dL Albumin (3.4-5.0) g/dL Globulin (2.6-4.0) g/dL Albumin/Globulin Ratio (0.9-1.6) Amylase (25-115) U/L Lipase 1305 H (73-393) U/L Acetaminophen ug/mL Med Orders - Current: Current Medications Doxazosin Mesylate (Cardura) 2 mg PO DAILY [facility] Last Admin: 01/15/19 08:35 Dose: 2 mg Finasteride (Proscar) 5 mg PO DAILY [facility] Last Admin: 01/15/19 08:37 Dose: Not Given Heparin Sodium (Porcine) (Heparin Sodium) 5,000 units SUBCUT Q12H [facility] Last Admin: 01/15/19 05:04 Dose: 5,000 units Sodium Chloride (Normal Saline) 1,000 mls @ 100 mls/hr IV ASDIRECTED [facility] Last Admin: 01/15/19 08:33 Dose: 100 mls/hr Lisinopril (Prinivil) 5 mg PO DAILY [facility] Last Admin: 01/15/19 08:35 Dose: 5 mg Metoprolol Succinate (Toprol Xl) 50 mg PO DAILY [facility] Last Admin: 01/15/19 08:34 Dose: 50 mg Omeprazole (Omeprazole) 20 mg PO ACBREAKFAST [facility] Last Admin: 01/15/19 08:34 Dose: 20 mg Ondansetron HCl (Zofran) 4 mg IVPUSH Q4H PRN PRN Reason: Nausea Sodium Chloride (Saline Flush) 10 ml FLUSH ASDIRECTED PRN PRN Reason: Keep Vein Open Last Admin: 01/14/19 12:14 Dose: 10 ml Sodium Chloride (Saline Flush) 2.5 ml FLUSH ASDIRECTED PRN PRN Reason: Keep Vein Open Last Admin: 01/14/19 12:14 Dose: 2.5 ml Discontinued Medications Gadobenate Dimeglumine (Multihance) 16 ml IVPUSH ONETIME STA Stop: 01/14/19 18:51 Last Admin: 01/14/19 18:51 Dose: 16 ml Sodium Chloride (Normal Saline) 1,000 mls @ 125 mls/hr IV STAT [facility] Last Infusion: 01/14/19 15:44 Dose: 100 mls/hr Iopamidol (Isovue-370 (76%)) 75 ml IVPUSH ONETIME ONE Stop: 01/14/19 18:27 Last Admin: 01/14/19 18:26 Dose: 75 ml Lorazepam (Ativan) 1 mg PO ONETIME ONE Stop: 01/14/19 18:21 Last Admin: 01/14/19 18:26 Dose: 1 mg Nitroglycerin (Nitro-Bid 2%) 1 gm TOP ONETIME ONE Stop: 01/14/19 12:08 Last Admin: 01/14/19 12:14 Dose: 1 gm - Exam General: Alert, Oriented, Cooperative, No Acute Distress Lungs: Clear to Auscultation, Normal Respiratory Effort Cardiovascular: Regular Rate, Irregular Rhythm. No: Bradycardia, Tachycardia, Murmurs GI/Abdominal Exam: Normal Bowel Sounds, Soft, Non-Tender, No Distention Back Exam: Normal Inspection, Full Range of Motion Extremities: Normal Inspection, Normal Range of Motion, Non-Tender, No Pedal Edema Neurological: No New Focal Deficit Psy/Mental Status: Alert, Normal Affect, Normal Mood - Problem List & Annotations (1) Chest pain SNOMED Code(s): 50647649 Code(s): R07.9 - CHEST PAIN, UNSPECIFIED Status: Ruled-out Priority: Low Current Visit: Yes (2) Elevated liver function tests SNOMED Code(s): 313379787, 094702201 Code(s): R94.5 - ABNORMAL RESULTS OF LIVER FUNCTION STUDIES Status: Acute Priority: High Current Visit: Yes (3) Hyperbilirubinemia SNOMED Code(s): 33962745 Code(s): E80.6 - OTHER DISORDERS OF BILIRUBIN METABOLISM Status: Acute Priority: High Current Visit: Yes (4) CAD (coronary artery disease) SNOMED Code(s): 57467972 Code(s): I25.10 - ATHSCL HEART DISEASE OF [place] CORONARY ARTERY W/O ANG PCTRS Status: Chronic Priority: Medium Current Visit: Yes Qualifiers: [place] vs. transplanted heart: [place] heart Associated angina: without angina (5) History of coronary artery stent placement SNOMED Code(s): 982650867, 501755530 Code(s): Z95.5 - PRESENCE OF CORONARY ANGIOPLASTY IMPLANT AND GRAFT Status : Chronic Priority: High Current Visit: Yes (6) HTN (hypertension) SNOMED Code(s): 64527900 Code(s): I10 - ESSENTIAL (PRIMARY) HYPERTENSION Status: Chronic Current Visit: Yes (7) Hx of myocardial infarction SNOMED Code(s): 669479022 Code(s): I25.2 - OLD MYOCARDIAL INFARCTION Status: Chronic Priority: Low Current Visit: Yes (8) Cholelithiasis SNOMED Code(s): 644331548 Code(s): K80.20 - CALCULUS OF GALLBLADDER W/O CHOLECYSTITIS W/O OBSTRUCTION Status: Acute Current Visit: Yes Qualifiers: Cholelithiasis location: gallbladder Cholecystitis presence: without cholecystitis Biliary obstruction: with biliary obstruction Qualified Code(s ): K80.21 - Calculus of gallbladder without cholecystitis with obstruction - Problem List Review Problem List Initiated/Reviewed/Updated: Yes - My Orders Last 24 Hours: My Active Orders 01/14/19 15:36 Telemetry Monitoring [Cardiac Monitoring] [RC] Q8H 01/14/19 15:38 Intake and Output [RC] Q12H Oxygen Therapy [RC] PRN Up ad Adriana [RC] ASDIRECTED VTE/DVT Education [RC] PER UNIT ROUTINE Vital Signs [RC] Q4H Ondansetron [Zofran] 4 mg IVPUSH Q4H PRN Resuscitation Status Routine 01/14/19 15:39 Communication Order [RC] ROUTINE 01/14/19 15:45 Sodium Chloride 0.9% [Normal Saline] 1,000 ml IV ASDIRECTED 01/14/19 16:36 HEPATITIS PANEL (4) [REF] Routine 01/14/19 16:48 Ready for Discharge [RC] PER UNIT ROUTINE 01/14/19 16:54 Consult to Physician [CONS] Routine 01/14/19 16:55 Notify Provider Consults [RC] ASDIRECTED Abdomen w wo Cont [MR] Routine 01/14/19 16:57 Chest w Cont [CT] Routine 01/14/19 17:15 Heparin Sodium 5,000 units SUBCUT Q12H 01/14/19 Dinner Heart Healthy Diet [DIET] 01/15/19 08:20 Omeprazole 20 mg PO ACBREAKFAST 01/15/19 09:00 Doxazosin [Cardura] 2 mg PO DAILY Finasteride [Proscar] 5 mg PO DAILY Lisinopril [Prinivil] 5 mg PO DAILY Metoprolol Succinate [Toprol XL] 50 mg PO DAILY 01/15/19 Breakfast NPO After Midnight [Nothing per Oral After Midnight Diet] [DIET] - Plan Plan:: This 78 year old male admitted with chest pain and elevated liver function tests 1. Chest pain: No acute ST changes, Troponins negative. ACS ruled out. Likely secondary to cholelithiasis and like passing a stone. 2. Gallstone pancreatitis: Improved overnight, bilirubin 1.9 today. MRCP pending. Will need cholecystectomy, follow up with Dr Chiu as outpatient. Lipase quite elevated on admission, likely gallstone pancreatitis. Lipase 1300 this morning. Continue NS at 150 for now. NPO, sips with meds and ice chips ok. 3. CAD: Stable. Continue home meds. ASA continued 4. BPH: Continue home meds. Stable. 5. Chest Xray fullness: Chest CT reveals sliding hiatal hernia, no mass or enlarge lymph nodes noted. VTE prophylaxis: Heparin Dispo: 1-2 days.
--- NOTE | 2019-01-15 09:24 | MR ---
INDICATION: Cholelithiasis. COMPARISON: Chest CT scan dated 14 January 2019. TECHNIQUE: Abdominal MRI with T1 in- and out of phase, T2, diffusion weighted, and progressively delayed post-contrast images. Intravenous gadolinium administered. Heavily T2 weighted 2D and 3D MRCP images also performed. FINDINGS: No fatty infiltration of the liver. No focal abnormalities identified in the visualized portions of the liver, spleen, and adrenal glands. 2.1 cm cyst extending anteriorly off the interpolar region of the left kidney. The kidneys are otherwise unremarkable. No hydronephrosis. Mild edema around the head of the pancreas extending into the juana hepatis. The pancreas is otherwise unremarkable. No intra or extrahepatic bile duct dilation with the common bile duct measuring 4 mm. No filling defects in the biliary system. Normal size of the main pancreatic duct. Gallstones in the gallbladder. Mild gallbladder wall thickening. IMPRESSION: 1. No bile duct dilation. No choledocholithiasis. Normal size of the main pancreatic duct. 2. Cholelithiasis. Mild gallbladder wall thickening could indicate cholecystitis. 3. Mild edema around the head of the pancreas extending into the juana hepatis could be due to a mild acute pancreatitis. Dictated by Deion Ramon MD @ 01/15/2019 9:23:56 AM Dictated by: Deion Ramon MD @ 01/15/2019 09:24:05 (Electronically Signed)
--- NOTE | 2019-01-15 14:35 | PCM.CONSN ---
- General Info Date of Service: 01/15/19 Admission Dx/Problem (Free Text): Hyperbilirubinemia. Cholelithiasis. Elevated liver enzymes. Functional Status: Reports: Pain Controlled, Ambulating - Review of Systems General: Denies: Fever, Weakness, Fatigue HEENT: Reports: No Symptoms Pulmonary: Denies: Shortness of Breath, Pleuritic Chest Pain Cardiovascular: Denies: Chest Pain Gastrointestinal: Denies: Abdominal Pain, Constipation, Diarrhea, Difficulty Swallowing Genitourinary: Reports: No Symptoms Musculoskeletal: Reports: No Symptoms Skin: Reports: No Symptoms Neurological: Reports: No Symptoms Psychiatric: Reports: No Symptoms - Patient Data Vitals - Most Recent: Last Vital Signs Temp 98.1 F 01/15/19 12:48 Pulse 60 01/15/19 12:48 Resp 14 01/15/19 12:48 BP 146/66 H 01/15/19 12:48 Pulse Ox 98 01/15/19 12:48 Weight - Most Recent: 187 lb 9.814 oz I&O - Last 24 Hours: Intake & Output 01/15/19 01/15/19 01/15/19 03:59 11:59 19:59 Intake Total 918 Balance 918 Lab Results Last 24 Hours: Laboratory Results - last 24 hr 01/14/19 01/14/19 01/14/19 Range/Units 16:36 16:36 18:16 WBC (4.0-11.0) K/uL RBC (4.50-5.90) M/uL Hgb (13.0-17.0) g/dL Hct (38.0-50.0) % MCV (80.0-98.0) fL MCH (27.0-32.0) pg MCHC (31.0-37.0) g/dL RDW Std Deviation (28.0-62.0) fl RDW Coeff of Augusto (11.0-15.0) % Plt Count (150-400) K/uL MPV (7.40-12.00) fL Neut % (Auto) (48.0-80.0) % Lymph % (Auto) (16.0-40.0) % [place] % (Auto) (0.0-15.0) % Eos % (Auto) (0.0-7.0) % Baso % (Auto) (0.0-1.5) % Neut # (Auto) (1.4-5.7) K/uL Lymph # (Auto) (0.6-2.4) K/uL [place] # (Auto) (0.0-0.8) K/uL Eos # (Auto) (0.0-0.7) K/uL Baso # (Auto) (0.0-0.1) K/uL Nucleated RBC % /100WBC Nucleated RBCs # K/uL Sodium (136-148) mmol/L Potassium (3.5-5.1) mmol/L Chloride (98-107) mmol/L Carbon Dioxide (21.0-32.0) mmol/L BUN (7.0-18.0) mg/dL Creatinine (0.8-1.3) mg/dL Est Cr Clr Drug Dosing mL/min Estimated GFR (MDRD) ml/min Glucose (74-106) mg/dL Calcium (8.5-10.1) mg/dL Total Bilirubin (0.2-1.0) mg/dL AST (15-37) IU/L ALT (14-63) IU/L Alkaline Phosphatase (46-116) U/L Troponin I < 0.050 (0.000-0.056) ng/mL Total Protein (6.4-8.2) g/dL Albumin (3.4-5.0) g/dL Globulin (2.6-4.0) g/dL Albumin/Globulin Ratio (0.9-1.6) Amylase 243 H (25-115) U/L Lipase 4458 H (73-393) U/L Acetaminophen <2.0 ug/mL 01/15/19 01/15/19 01/15/19 Range/Units 00:28 05:10 05:10 WBC 8.80 (4.0-11.0) K/uL RBC 3.93 L (4.50-5.90) M/uL Hgb 12.2 L (13.0-17.0) g/dL Hct 37.9 L (38.0-50.0) % MCV 96.4 (80.0-98.0) fL MCH 31.0 (27.0-32.0) pg MCHC 32.2 (31.0-37.0) g/dL RDW Std Deviation 48.9 (28.0-62.0) fl RDW Coeff of Augusto 14 (11.0-15.0) % Plt Count 122 L (150-400) K/uL MPV 11.80 (7.40-12.00) fL Neut % (Auto) 66.8 (48.0-80.0) % Lymph % (Auto) 18.2 (16.0-40.0) % [place] % (Auto) 11.6 (0.0-15.0) % Eos % (Auto) 3.2 (0.0-7.0) % Baso % (Auto) 0.2 (0.0-1.5) % Neut # (Auto) 5.9 H (1.4-5.7) K/uL Lymph # (Auto) 1.6 (0.6-2.4) K/uL [place] # (Auto) 1.0 H (0.0-0.8) K/uL Eos # (Auto) 0.3 (0.0-0.7) K/uL Baso # (Auto) 0.0 (0.0-0.1) K/uL Nucleated RBC % 0.0 /100WBC Nucleated RBCs # 0 K/uL Sodium 142 (136-148) mmol/L Potassium 3.9 (3.5-5.1) mmol/L Chloride 110 H (98-107) mmol/L Carbon Dioxide 21.0 (21.0-32.0) mmol/L BUN 15 (7.0-18.0) mg/dL Creatinine 1.1 (0.8-1.3) mg/dL Est Cr Clr Drug Dosing 52.68 mL/min Estimated GFR (MDRD) > 60.0 ml/min Glucose 77 (74-106) mg/dL Calcium 8.3 L (8.5-10.1) mg/dL Total Bilirubin 1.9 H (0.2-1.0) mg/dL AST 136 H (15-37) IU/L ALT 235 H (14-63) IU/L Alkaline Phosphatase 235 H (46-116) U/L Troponin I < 0.050 (0.000-0.056) ng/mL Total Protein 6.0 L (6.4-8.2) g/dL Albumin 2.7 L (3.4-5.0) g/dL Globulin 3.3 (2.6-4.0) g/dL Albumin/Globulin Ratio 0.8 L (0.9-1.6) Amylase (25-115) U/L Lipase (73-393) U/L Acetaminophen ug/mL 01/15/19 Range/Units 05:10 WBC (4.0-11.0) K/uL RBC (4.50-5.90) M/uL Hgb (13.0-17.0) g/dL Hct (38.0-50.0) % MCV (80.0-98.0) fL MCH (27.0-32.0) pg MCHC (31.0-37.0) g/dL RDW Std Deviation (28.0-62.0) fl RDW Coeff of Augusto (11.0-15.0) % Plt Count (150-400) K/uL MPV (7.40-12.00) fL Neut % (Auto) (48.0-80.0) % Lymph % (Auto) (16.0-40.0) % [place] % (Auto) (0.0-15.0) % Eos % (Auto) (0.0-7.0) % Baso % (Auto) (0.0-1.5) % Neut # (Auto) (1.4-5.7) K/uL Lymph # (Auto) (0.6-2.4) K/uL [place] # (Auto) (0.0-0.8) K/uL Eos # (Auto) (0.0-0.7) K/uL Baso # (Auto) (0.0-0.1) K/uL Nucleated RBC % /100WBC Nucleated RBCs # K/uL Sodium (136-148) mmol/L Potassium (3.5-5.1) mmol/L Chloride (98-107) mmol/L Carbon Dioxide (21.0-32.0) mmol/L BUN (7.0-18.0) mg/dL Creatinine (0.8-1.3) mg/dL Est Cr Clr Drug Dosing mL/min Estimated GFR (MDRD) ml/min Glucose (74-106) mg/dL Calcium (8.5-10.1) mg/dL Total Bilirubin (0.2-1.0) mg/dL AST (15-37) IU/L ALT (14-63) IU/L Alkaline Phosphatase (46-116) U/L Troponin I (0.000-0.056) ng/mL Total Protein (6.4-8.2) g/dL Albumin (3.4-5.0) g/dL Globulin (2.6-4.0) g/dL Albumin/Globulin Ratio (0.9-1.6) Amylase (25-115) U/L Lipase 1305 H (73-393) U/L Acetaminophen ug/mL Med Orders - Current: Current Medications Doxazosin Mesylate (Cardura) 2 mg PO DAILY [facility] Last Admin: 01/15/19 08:35 Dose: 2 mg Finasteride (Proscar) 5 mg PO DAILY [facility] Last Admin: 01/15/19 08:37 Dose: Not Given Heparin Sodium (Porcine) (Heparin Sodium) 5,000 units SUBCUT Q12H [facility] Last Admin: 01/15/19 05:04 Dose: 5,000 units Sodium Chloride (Normal Saline) 1,000 mls @ 150 mls/hr IV ASDIRECTED [facility] Lisinopril (Prinivil) 5 mg PO DAILY [facility] Last Admin: 01/15/19 08:35 Dose: 5 mg Metoprolol Succinate (Toprol Xl) 50 mg PO DAILY [facility] Last Admin: 01/15/19 08:34 Dose: 50 mg Omeprazole (Omeprazole) 20 mg PO ACBREAKFAST [facility] Last Admin: 01/15/19 08:34 Dose: 20 mg Ondansetron HCl (Zofran) 4 mg IVPUSH Q4H PRN PRN Reason: Nausea Sodium Chloride (Saline Flush) 10 ml FLUSH ASDIRECTED PRN PRN Reason: Keep Vein Open Last Admin: 01/14/19 12:14 Dose: 10 ml Sodium Chloride (Saline Flush) 2.5 ml FLUSH ASDIRECTED PRN PRN Reason: Keep Vein Open Last Admin: 01/14/19 12:14 Dose: 2.5 ml Discontinued Medications Gadobenate Dimeglumine (Multihance) 16 ml IVPUSH ONETIME STA Stop: 01/14/19 18:51 Last Admin: 01/14/19 18:51 Dose: 16 ml Sodium Chloride (Normal Saline) 1,000 mls @ 125 mls/hr IV STAT ANNA Last Infusion: 01/14/19 15:44 Dose: 100 mls/hr Sodium Chloride (Normal Saline) 1,000 mls @ 100 mls/hr IV ASDIRECTED [facility] Last Admin: 01/15/19 08:33 Dose: 100 mls/hr Iopamidol (Isovue-370 (76%)) 75 ml IVPUSH ONETIME ONE Stop: 01/14/19 18:27 Last Admin: 01/14/19 18:26 Dose: 75 ml Lorazepam (Ativan) 1 mg PO ONETIME ONE Stop: 01/14/19 18:21 Last Admin: 01/14/19 18:26 Dose: 1 mg Nitroglycerin (Nitro-Bid 2%) 1 gm TOP ONETIME ONE Stop: 01/14/19 12:08 Last Admin: 01/14/19 12:14 Dose: 1 gm - Exam General: Alert, Oriented, Cooperative, No Acute Distress HEENT: Pupils Equal, Pupils Reactive Neck: Supple Lungs: Clear to Auscultation, Normal Respiratory Effort Cardiovascular: Regular Rate, Regular Rhythm GI/Abdominal Exam: Normal Bowel Sounds, Soft, Non-Tender (Male) Exam: No Hernia Extremities: Normal Inspection Skin: Warm, Dry, Intact Neurological: No New Focal Deficit Psy/Mental Status: Alert, Normal Affect, Normal Mood Consult PN Assessment/Plan Procedures: Procedures ASSAY OF PSA TOTAL (03/08/18) METABOLIC PANEL TOTAL CA (05/18/14) ROUTINE VENIPUNCTURE (03/08/18) (1) Chest pain SNOMED Code(s): 03679209 Code(s): R07.9 - CHEST PAIN, UNSPECIFIED Priority: Low Current Visit: Yes (2) Elevated liver function tests SNOMED Code(s): 722013003, 002307263 Code(s): R94.5 - ABNORMAL RESULTS OF LIVER FUNCTION STUDIES Priority: High Current Visit: Yes (3) Hyperbilirubinemia SNOMED Code(s): 63960216 Code(s): E80.6 - OTHER DISORDERS OF BILIRUBIN METABOLISM Priority: High Current Visit: Yes (4) CAD (coronary artery disease) SNOMED Code(s): 65447464 Code(s): I25.10 - ATHSCL HEART DISEASE OF [place] CORONARY ARTERY W/O ANG PCTRS Priority: Medium Current Visit: Yes Qualifiers: [place] vs. transplanted heart: [place] heart Associated angina: without angina (5) HTN (hypertension) SNOMED Code(s): 07113250 Code(s): I10 - ESSENTIAL (PRIMARY) HYPERTENSION Current Visit: Yes (6) History of coronary artery stent placement SNOMED Code(s): 734513680, 241841054 Code(s): Z95.5 - PRESENCE OF CORONARY ANGIOPLASTY IMPLANT AND GRAFT Priority: High Current Visit: Yes (7) Hx of myocardial infarction SNOMED Code(s): 312121828 Code(s): I25.2 - OLD MYOCARDIAL INFARCTION Priority: Low Current Visit: Yes (8) Cholelithiasis SNOMED Code(s): 185751224 Code(s): K80.20 - CALCULUS OF GALLBLADDER W/O CHOLECYSTITIS W/O OBSTRUCTION Current Visit: Yes Qualifiers: Cholelithiasis location: gallbladder Cholecystitis presence: without cholecystitis Biliary obstruction: with biliary obstruction Qualified Code(s ): K80.21 - Calculus of gallbladder without cholecystitis with obstruction (9) Pancreatitis SNOMED Code(s): 63439726 Code(s): K85.90 - ACUTE PANCREATITIS WITHOUT NECROSIS OR INFECTION, UNSP Priority: High Current Visit: Yes Qualifiers: Chronicity: acute Pancreatitis type: biliary Problem List Initiated/Reviewed/Updated: Yes Plan: Labs reviewed. Given the pronounced hyperlipasemia, this most likely represents a biliary tract related pancreatitis. Would hold off on oral diet until labs have returned to [place]. Given the normal CBD size, I do not think ERCP is indicated. I would like to see him in the office once this all resolves for an elective laparosopic/open cholecystectomy.
[2019-01-15] MEDS ORDERED: Finasteride 5 MG Tab PO SCH (21:00)
[2019-01-16] MEDS: Heparin Sodium 5,000 Units/ML Vial SUBCUT SCH (05:52)
[2019-01-16] MEDS: Sodium Chloride 0.9% 1,000 ML IV SCH (05:53)
[2019-01-16 06:02] LABS: CHLORIDE,CL 110 mmol/L (98-107); SODIUM,NA 140 mmol/L (136-148)
[2019-01-16] MEDS: Omeprazole 20 MG Cap.CR PO SCH (06:31)
[2019-01-16] MEDS: Lisinopril 5 MG Tab PO SCH (08:54)
[2019-01-16] MEDS: Metoprolol Succinate 50 MG Tab.ER PO SCH (08:54)
[2019-01-16] MEDS: Doxazosin 2 MG Tab PO SCH (08:55)
--- NOTE | 2019-01-16 13:04 | PCM.DCSUM1 ---
Discharge Summary - Hospital Course Brief History: This 78 year old male with pmh of CAD with stenting in 2016, HTN , BPH presented to the ED with complaints of chest pain that started a couple days ago and has progressively worsened. He reports the pain starts in his abdomen and moves up to his chest. He denies fevers or chills, no other abdominal pain, no nausea or vomiting. No black or bloody BMs. He denies urinary concerns. He denies alcohol use and no Tylenol use. he denies having gallbladder issues and no cancer history for him. He reports the pain just went away, he is unsure what helped it, "something they did in the ED." He reports his RI was pain in his left shoulder and this does not feel like that. He has been eating and drinking just fine, no distension or bloating after eating. In the ED no leukocytosis noted, Platelets 140, INR 0.97, Cl 109, glucose 121, Bilirubin 4.3 AST 240, ALT 321, Alk phos 294. EKG SR with no acute ST changes. He was given nitro paste in the ED, pressures dropped to 80-90/40-50s. NS 125 given as well. CXR reports fullness to R infrahilar region, recommend CT to further evaluate. he will be admitted with chest pain and elevated LFTs. Diagnosis: Stroke: No - Discharge Data Discharge Date: 01/16/19 Discharge Disposition: Home, Self-Care 01 Condition: Stable - Discharge Diagnosis/Problem(s) (1) Gallstone pancreatitis SNOMED Code(s): 65297416 ICD Code: K85.10 - BILIARY ACUTE PANCREATITIS WITHOUT NECROSIS OR INFECTION Status: Acute Current Visit: Yes (2) Chest pain SNOMED Code(s): 81742229 ICD Code: R07.9 - CHEST PAIN, UNSPECIFIED Status: Ruled-out Priority: Low Current Visit: Yes (3) Elevated liver function tests SNOMED Code(s): 085599712, 467084939 ICD Code: R94.5 - ABNORMAL RESULTS OF LIVER FUNCTION STUDIES Status: Acute Priority: High Current Visit: Yes (4) Hyperbilirubinemia SNOMED Code(s): 07397972 ICD Code: E80.6 - OTHER DISORDERS OF BILIRUBIN METABOLISM Status: Acute Priority: High Current Visit: Yes (5) CAD (coronary artery disease) SNOMED Code(s): 96066445 ICD Code: I25.10 - ATHSCL HEART DISEASE OF [place] CORONARY ARTERY W/O ANG PCTRS Status: Chronic Priority: Medium Current Visit: Yes Qualifiers: [place] vs. transplanted heart: [place] heart Associated angina: without angina (6) History of coronary artery stent placement SNOMED Code(s): 104208744, 086848411 ICD Code: Z95.5 - PRESENCE OF CORONARY ANGIOPLASTY IMPLANT AND GRAFT Status : Chronic Priority: High Current Visit: Yes (7) HTN (hypertension) SNOMED Code(s): 44572653 ICD Code: I10 - ESSENTIAL (PRIMARY) HYPERTENSION Status: Chronic Current Visit: Yes (8) Hx of myocardial infarction SNOMED Code(s): 120614360 ICD Code: I25.2 - OLD MYOCARDIAL INFARCTION Status: Chronic Priority: Low Current Visit: Yes (9) Cholelithiasis SNOMED Code(s): 480124717 ICD Code: K80.20 - CALCULUS OF GALLBLADDER W/O CHOLECYSTITIS W/O OBSTRUCTION Status: Acute Current Visit: Yes Qualifiers: Cholelithiasis location: gallbladder Cholecystitis presence: without cholecystitis Biliary obstruction: with biliary obstruction Qualified Code(s ): K80.21 - Calculus of gallbladder without cholecystitis with obstruction - Patient Summary/Data Consults: Consultations 01/14/19 16:54 Consult to Physician [CONS] Routine - Patient Instructions Diet: Heart Healthy Diet (Low fat) Activity: As Tolerated Showering/Bathing: May Shower Notify Provider of: Fever, Increased Pain, Swelling and Redness, Drainage, Nausea and/or Vomiting Other/Special Instructions: Quit Smoking! - Discharge Plan *PRESCRIPTION DRUG MONITORING PROGRAM REVIEWED*: No *COPY OF PRESCRIPTION DRUG MONITORING REPORT IN PATIENT DANNA: No Home Medications: Home Meds Doxazosin [Cardura] 2 mg PO DAILY 01/14/19 [History] Finasteride [Proscar] 5 mg PO DAILY 01/14/19 [History] Lisinopril [Prinivil] 5 mg PO DAILY 01/14/19 [History] Metoprolol Succinate 50 mg PO DAILY 01/14/19 [History] Nitroglycerin [Nitrostat] 0.4 mg PO ASDIRECTED PRN 01/14/19 [History] Omeprazole 10 mg PO ACBREAKFAST 01/14/19 [History] atorvaSTATin Calcium [Lipitor] 80 mg PO DAILY 01/14/19 [History] Oxygen Therapy Mode: Room Air Patient Handouts: Acute Pancreatitis, [id number], Cholelithiasis, Easy-to- Read, Gallbladder Eating Plan, Aspirin, ASA oral tablets Referrals: Mina Chiu MD [Physician] - 02/04/19 9:30 am Shiraz King MD [Physician] - 01/29/19 9:00 am - Discharge Summary/Plan Comment DC Time >30 min.: No Discharge Summary/Plan Comment: Admitting Diagnoses: Abdominal pain Chest pain- rule out ACS Elevated LFTs Discharge Diagnoses: Gallstone pancreatitis Cholelithiasis Other PMH Hx RI with stenting in 2016 HTN BPH CAD Ramon was admitted with chest/abdominal pain. It was noted in ED he has elevated LFTs. He was monitored for chest pain and ruled out for ACS with trending troponins, which were negative and no ST changes on EKG. Lipase added to ED labwork noted to be 4400 and RUQ US reported to have cholelithiasis. Dr Chiu , general surgery was consulted. H MRCP was recommended and obtained, which revealed mild pancreatitis, but no ductal dilation. Cholelithiasis noted with mild increase in gallbladder wall thickness. Patient has been pain free since arrival to unit. He was kept on IVFs, NPO and LFTs monitored. Today lipase in WNL 232, LFTS slightly elevated but trending down and bilirubin is no 1.3. Diet was advanced to [place] then low fat today and he is doing well. No nausea or pain. He is to remain on low fat. he will have follow up with Dr Chiu for cholecystectomy. I will set up an appointment with Dr King for him to establish care as he may need medical clearance for cholecystectomy. He is to return to ED or clinic if concerns should arise, restart all home medications as previously prescribed. - General Info Date of Service: 01/16/19 Admission Dx/Problem (Free Text: Gallstone pancreatitis Subjective Update: Doing well today, no pain or nausea. No other concerns. eager to eat and go home Functional Status: Reports: Pain Controlled, Tolerating Diet, Ambulating, Urinating - Review of Systems General: Reports: No Symptoms. Denies: Weakness, Fatigue, Malaise Pulmonary: Reports: No Symptoms. Denies: Shortness of Breath Cardiovascular: Reports: No Symptoms. Denies: Chest Pain Gastrointestinal: Reports: No Symptoms. Denies: Abdominal Pain, Nausea, Vomiting Genitourinary: Reports: No Symptoms Musculoskeletal: Reports: No Symptoms Skin: Reports: No Symptoms Neurological: Reports: No Symptoms Psychiatric: Reports: No Symptoms - Patient Data Vitals - Most Recent: Last Vital Signs Temp 98 F 01/16/19 11:40 Pulse 60 01/16/19 11:40 Resp 16 01/16/19 11:40 BP 147/56 H 01/16/19 11:40 Pulse Ox 98 01/16/19 11:40 Weight - Most Recent: 85.1 kg I&O - Last 24 hours: Intake & Output 01/15/19 01/16/19 01/16/19 22:59 06:59 14:59 Intake Total 910 1963 290 Output Total 825 Balance 910 1963 -535 Lab Results - Last 24 hrs: Laboratory Results - last 24 hr 01/16/19 01/16/19 01/16/19 Range/Units 05:30 05:30 05:30 WBC 6.62 (4.0-11.0) K/uL RBC 3.83 L (4.50-5.90) M/uL Hgb 11.8 L (13.0-17.0) g/dL Hct 36.8 L (38.0-50.0) % MCV 96.1 (80.0-98.0) fL MCH 30.8 (27.0-32.0) pg MCHC 32.1 (31.0-37.0) g/dL RDW Std Deviation 47.7 (28.0-62.0) fl RDW Coeff of Augusto 14 (11.0-15.0) % Plt Count 115 L (150-400) K/uL MPV 10.70 (7.40-12.00) fL Neut % (Auto) 63.3 (48.0-80.0) % Lymph % (Auto) 19.8 (16.0-40.0) % [place] % (Auto) 12.2 (0.0-15.0) % Eos % (Auto) 4.2 (0.0-7.0) % Baso % (Auto) 0.5 (0.0-1.5) % Neut # (Auto) 4.2 (1.4-5.7) K/uL Lymph # (Auto) 1.3 (0.6-2.4) K/uL [place] # (Auto) 0.8 (0.0-0.8) K/uL Eos # (Auto) 0.3 (0.0-0.7) K/uL Baso # (Auto) 0.0 (0.0-0.1) K/uL Nucleated RBC % 0.0 /100WBC Nucleated RBCs # 0 K/uL Sodium 140 (136-148) mmol/L Potassium 4.0 (3.5-5.1) mmol/L Chloride 110 H (98-107) mmol/L Carbon Dioxide 17.9 L (21.0-32.0) mmol/L BUN 14 (7.0-18.0) mg/dL Creatinine 1.0 (0.8-1.3) mg/dL Est Cr Clr Drug Dosing 57.95 mL/min Estimated GFR (MDRD) > 60.0 ml/min Glucose 61 L (74-106) mg/dL POC Glucose (60-110) mg/dL Calcium 8.1 L (8.5-10.1) mg/dL Total Bilirubin 1.3 H (0.2-1.0) mg/dL AST 72 H (15-37) IU/L ALT 162 H (14-63) IU/L Alkaline Phosphatase 184 H (46-116) U/L Total Protein 5.8 L (6.4-8.2) g/dL Albumin 2.4 L (3.4-5.0) g/dL Globulin 3.4 (2.6-4.0) g/dL Albumin/Globulin Ratio 0.7 L (0.9-1.6) Lipase 235 (73-393) U/L 01/16/19 01/16/19 Range/Units 08:09 09:01 WBC (4.0-11.0) K/uL RBC (4.50-5.90) M/uL Hgb (13.0-17.0) g/dL Hct (38.0-50.0) % MCV (80.0-98.0) fL MCH (27.0-32.0) pg MCHC (31.0-37.0) g/dL RDW Std Deviation (28.0-62.0) fl RDW Coeff of Augusto (11.0-15.0) % Plt Count (150-400) K/uL MPV (7.40-12.00) fL Neut % (Auto) (48.0-80.0) % Lymph % (Auto) (16.0-40.0) % [place] % (Auto) (0.0-15.0) % Eos % (Auto) (0.0-7.0) % Baso % (Auto) (0.0-1.5) % Neut # (Auto) (1.4-5.7) K/uL Lymph # (Auto) (0.6-2.4) K/uL [place] # (Auto) (0.0-0.8) K/uL Eos # (Auto) (0.0-0.7) K/uL Baso # (Auto) (0.0-0.1) K/uL Nucleated RBC % /100WBC Nucleated RBCs # K/uL Sodium (136-148) mmol/L Potassium (3.5-5.1) mmol/L Chloride (98-107) mmol/L Carbon Dioxide (21.0-32.0) mmol/L BUN (7.0-18.0) mg/dL Creatinine (0.8-1.3) mg/dL Est Cr Clr Drug Dosing mL/min Estimated GFR (MDRD) ml/min Glucose (74-106) mg/dL POC Glucose 52 L 101 (60-110) mg/dL Calcium (8.5-10.1) mg/dL Total Bilirubin (0.2-1.0) mg/dL AST (15-37) IU/L ALT (14-63) IU/L Alkaline Phosphatase (46-116) U/L Total Protein (6.4-8.2) g/dL Albumin (3.4-5.0) g/dL Globulin (2.6-4.0) g/dL Albumin/Globulin Ratio (0.9-1.6) Lipase (73-393) U/L Med Orders - Current: Current Medications Doxazosin Mesylate (Cardura) 2 mg PO DAILY [facility] Last Admin: 01/16/19 08:55 Dose: 2 mg Finasteride (Proscar) 5 mg PO BEDTIME [facility] Last Admin: 01/15/19 20:42 Dose: 5 mg Heparin Sodium (Porcine) (Heparin Sodium) 5,000 units SUBCUT Q12H [facility] Last Admin: 01/16/19 05:52 Dose: 5,000 units Sodium Chloride (Normal Saline) 1,000 mls @ 150 mls/hr IV ASDIRECTED [facility] Last Admin: 01/16/19 05:53 Dose: 150 mls/hr Lisinopril (Prinivil) 5 mg PO DAILY [facility] Last Admin: 01/16/19 08:54 Dose: 5 mg Metoprolol Succinate (Toprol Xl) 50 mg PO DAILY [facility] Last Admin: 01/16/19 08:54 Dose: 50 mg Omeprazole (Omeprazole) 20 mg PO ACBREAKFAST [facility] Last Admin: 01/16/19 06:31 Dose: 20 mg Ondansetron HCl (Zofran) 4 mg IVPUSH Q4H PRN PRN Reason: Nausea Sodium Chloride (Saline Flush) 10 ml FLUSH ASDIRECTED PRN PRN Reason: Keep Vein Open Last Admin: 01/14/19 12:14 Dose: 10 ml Sodium Chloride (Saline Flush) 2.5 ml FLUSH ASDIRECTED PRN PRN Reason: Keep Vein Open Last Admin: 01/14/19 12:14 Dose: 2.5 ml Discontinued Medications Finasteride (Proscar) 5 mg PO DAILY [facility] Last Admin: 01/15/19 08:37 Dose: Not Given Gadobenate Dimeglumine (Multihance) 16 ml IVPUSH ONETIME STA Stop: 01/14/19 18:51 Last Admin: 01/14/19 18:51 Dose: 16 ml Sodium Chloride (Normal Saline) 1,000 mls @ 125 mls/hr IV STAT [facility] Last Infusion: 01/14/19 15:44 Dose: 100 mls/hr Sodium Chloride (Normal Saline) 1,000 mls @ 100 mls/hr IV ASDIRECTED [facility] Last Admin: 01/15/19 08:33 Dose: 100 mls/hr Iopamidol (Isovue-370 (76%)) 75 ml IVPUSH ONETIME ONE Stop: 01/14/19 18:27 Last Admin: 01/14/19 18:26 Dose: 75 ml Lorazepam (Ativan) 1 mg PO ONETIME ONE Stop: 01/14/19 18:21 Last Admin: 01/14/19 18:26 Dose: 1 mg Nitroglycerin (Nitro-Bid 2%) 1 gm TOP ONETIME ONE Stop: 01/14/19 12:08 Last Admin: 01/14/19 12:14 Dose: 1 gm - Exam General: Reports: Alert, Oriented, Cooperative Lungs: Reports: Clear to Auscultation, Normal Respiratory Effort Cardiovascular: Reports: Regular Rate, Regular Rhythm GI/Abdominal Exam: Normal Bowel Sounds, Soft, Non-Tender, No Distention Back Exam: Reports: Normal Inspection, Full Range of Motion Extremities: Normal Inspection, Normal Range of Motion, Non-Tender, No Pedal Edema Wound/Incisions: Reports: Healing Well Neurological: Reports: No New Focal Deficit Psy/Mental Status: Reports: Alert, Normal Affect, Normal Mood
--- NOTE | 2019-01-16 17:05 | PCM.CONSN ---
- General Info Date of Service: 01/16/19 Admission Dx/Problem (Free Text): Cholelithiasis w/ pancreatitis Subjective Update: Patient seen on rounds earlier today. Functional Status: Reports: Pain Controlled, Tolerating Diet - Review of Systems General: Denies: Fever, Weakness, Fatigue HEENT: Reports: No Symptoms Pulmonary: Denies: Shortness of Breath, Pleuritic Chest Pain Cardiovascular: Denies: Chest Pain, Palpitations Gastrointestinal: Reports: Flatus, Nausea, Vomiting. Denies: Abdominal Pain, Constipation, Decreased Appetite, Diarrhea, Hematochezia, Melena Genitourinary: Denies: Dysuria, Frequency Musculoskeletal: Reports: No Symptoms Skin: Reports: No Symptoms Neurological: Reports: No Symptoms Psychiatric: Reports: No Symptoms - Patient Data Vitals - Most Recent: Last Vital Signs Temp 98 F 01/16/19 11:40 Pulse 60 01/16/19 11:40 Resp 16 01/16/19 11:40 BP 147/56 H 01/16/19 11:40 Pulse Ox 98 01/16/19 11:40 Weight - Most Recent: 187 lb 9.814 oz I&O - Last 24 Hours: Intake & Output 01/16/19 01/16/19 01/16/19 03:59 11:59 19:59 Intake Total 2253 400 Output Total 825 500 Balance 1428 -100 Lab Results Last 24 Hours: Laboratory Results - last 24 hr 01/16/19 01/16/19 01/16/19 Range/Units 05:30 05:30 05:30 WBC 6.62 (4.0-11.0) K/uL RBC 3.83 L (4.50-5.90) M/uL Hgb 11.8 L (13.0-17.0) g/dL Hct 36.8 L (38.0-50.0) % MCV 96.1 (80.0-98.0) fL MCH 30.8 (27.0-32.0) pg MCHC 32.1 (31.0-37.0) g/dL RDW Std Deviation 47.7 (28.0-62.0) fl RDW Coeff of Augusto 14 (11.0-15.0) % Plt Count 115 L (150-400) K/uL MPV 10.70 (7.40-12.00) fL Neut % (Auto) 63.3 (48.0-80.0) % Lymph % (Auto) 19.8 (16.0-40.0) % Carlton % (Auto) 12.2 (0.0-15.0) % Eos % (Auto) 4.2 (0.0-7.0) % Baso % (Auto) 0.5 (0.0-1.5) % Neut # (Auto) 4.2 (1.4-5.7) K/uL Lymph # (Auto) 1.3 (0.6-2.4) K/uL Carlton # (Auto) 0.8 (0.0-0.8) K/uL Eos # (Auto) 0.3 (0.0-0.7) K/uL Baso # (Auto) 0.0 (0.0-0.1) K/uL Nucleated RBC % 0.0 /100WBC Nucleated RBCs # 0 K/uL Sodium 140 (136-148) mmol/L Potassium 4.0 (3.5-5.1) mmol/L Chloride 110 H (98-107) mmol/L Carbon Dioxide 17.9 L (21.0-32.0) mmol/L BUN 14 (7.0-18.0) mg/dL Creatinine 1.0 (0.8-1.3) mg/dL Est Cr Clr Drug Dosing 57.95 mL/min Estimated GFR (MDRD) > 60.0 ml/min Glucose 61 L (74-106) mg/dL POC Glucose (60-110) mg/dL Calcium 8.1 L (8.5-10.1) mg/dL Total Bilirubin 1.3 H (0.2-1.0) mg/dL AST 72 H (15-37) IU/L ALT 162 H (14-63) IU/L Alkaline Phosphatase 184 H (46-116) U/L Total Protein 5.8 L (6.4-8.2) g/dL Albumin 2.4 L (3.4-5.0) g/dL Globulin 3.4 (2.6-4.0) g/dL Albumin/Globulin Ratio 0.7 L (0.9-1.6) Lipase 235 (73-393) U/L 01/16/19 01/16/19 Range/Units 08:09 09:01 WBC (4.0-11.0) K/uL RBC (4.50-5.90) M/uL Hgb (13.0-17.0) g/dL Hct (38.0-50.0) % MCV (80.0-98.0) fL MCH (27.0-32.0) pg MCHC (31.0-37.0) g/dL RDW Std Deviation (28.0-62.0) fl RDW Coeff of Augusto (11.0-15.0) % Plt Count (150-400) K/uL MPV (7.40-12.00) fL Neut % (Auto) (48.0-80.0) % Lymph % (Auto) (16.0-40.0) % Carlton % (Auto) (0.0-15.0) % Eos % (Auto) (0.0-7.0) % Baso % (Auto) (0.0-1.5) % Neut # (Auto) (1.4-5.7) K/uL Lymph # (Auto) (0.6-2.4) K/uL Carlton # (Auto) (0.0-0.8) K/uL Eos # (Auto) (0.0-0.7) K/uL Baso # (Auto) (0.0-0.1) K/uL Nucleated RBC % /100WBC Nucleated RBCs # K/uL Sodium (136-148) mmol/L Potassium (3.5-5.1) mmol/L Chloride (98-107) mmol/L Carbon Dioxide (21.0-32.0) mmol/L BUN (7.0-18.0) mg/dL Creatinine (0.8-1.3) mg/dL Est Cr Clr Drug Dosing mL/min Estimated GFR (MDRD) ml/min Glucose (74-106) mg/dL POC Glucose 52 L 101 (60-110) mg/dL Calcium (8.5-10.1) mg/dL Total Bilirubin (0.2-1.0) mg/dL AST (15-37) IU/L ALT (14-63) IU/L Alkaline Phosphatase (46-116) U/L Total Protein (6.4-8.2) g/dL Albumin (3.4-5.0) g/dL Globulin (2.6-4.0) g/dL Albumin/Globulin Ratio (0.9-1.6) Lipase (73-393) U/L Med Orders - Current: Current Medications Discontinued Medications Doxazosin Mesylate (Cardura) 2 mg PO DAILY [facility] Last Admin: 01/16/19 08:55 Dose: 2 mg Finasteride (Proscar) 5 mg PO DAILY [facility] Last Admin: 01/15/19 08:37 Dose: Not Given Finasteride (Proscar) 5 mg PO BEDTIME [facility] Last Admin: 01/15/19 20:42 Dose: 5 mg Gadobenate Dimeglumine (Multihance) 16 ml IVPUSH ONETIME STA Stop: 01/14/19 18:51 Last Admin: 01/14/19 18:51 Dose: 16 ml Heparin Sodium (Porcine) (Heparin Sodium) 5,000 units SUBCUT Q12H [facility] Last Admin: 01/16/19 05:52 Dose: 5,000 units Sodium Chloride (Normal Saline) 1,000 mls @ 125 mls/hr IV STAT [facility] Last Infusion: 01/14/19 15:44 Dose: 100 mls/hr Sodium Chloride (Normal Saline) 1,000 mls @ 100 mls/hr IV ASDIRECTED [facility] Last Admin: 01/15/19 08:33 Dose: 100 mls/hr Sodium Chloride (Normal Saline) 1,000 mls @ 150 mls/hr IV ASDIRECTED [facility] Last Admin: 01/16/19 05:53 Dose: 150 mls/hr Iopamidol (Isovue-370 (76%)) 75 ml IVPUSH ONETIME ONE Stop: 01/14/19 18:27 Last Admin: 01/14/19 18:26 Dose: 75 ml Lisinopril (Prinivil) 5 mg PO DAILY [facility] Last Admin: 01/16/19 08:54 Dose: 5 mg Lorazepam (Ativan) 1 mg PO ONETIME ONE Stop: 01/14/19 18:21 Last Admin: 01/14/19 18:26 Dose: 1 mg Metoprolol Succinate (Toprol Xl) 50 mg PO DAILY [facility] Last Admin: 01/16/19 08:54 Dose: 50 mg Nitroglycerin (Nitro-Bid 2%) 1 gm TOP ONETIME ONE Stop: 01/14/19 12:08 Last Admin: 01/14/19 12:14 Dose: 1 gm Omeprazole (Omeprazole) 20 mg PO ACBREAKFAST [facility] Last Admin: 01/16/19 06:31 Dose: 20 mg Ondansetron HCl (Zofran) 4 mg IVPUSH Q4H PRN PRN Reason: Nausea Sodium Chloride (Saline Flush) 10 ml FLUSH ASDIRECTED PRN PRN Reason: Keep Vein Open Last Admin: 01/14/19 12:14 Dose: 10 ml Sodium Chloride (Saline Flush) 2.5 ml FLUSH ASDIRECTED PRN PRN Reason: Keep Vein Open Last Admin: 01/14/19 12:14 Dose: 2.5 ml - Exam General: Alert, Oriented, Cooperative, No Acute Distress HEENT: Pupils Equal, Pupils Reactive, EOMI. No: Scleral Icterus Neck: Supple Lungs: Clear to Auscultation, Normal Respiratory Effort Cardiovascular: Regular Rate, Regular Rhythm GI/Abdominal Exam: Normal Bowel Sounds, Soft, Non-Tender, No Organomegaly, No Distention (Male) Exam: No Hernia Back Exam: Normal Inspection Extremities: Normal Inspection, Normal Range of Motion, Non-Tender Skin: Warm, Dry, Intact Neurological: No New Focal Deficit Psy/Mental Status: Alert, Normal Affect, Normal Mood Consult PN Assessment/Plan Procedures: Procedures ASSAY OF PSA TOTAL (03/08/18) METABOLIC PANEL TOTAL CA (05/18/14) ROUTINE VENIPUNCTURE (03/08/18) (1) Elevated liver function tests SNOMED Code(s): 852571469, 193008692 Code(s): R94.5 - ABNORMAL RESULTS OF LIVER FUNCTION STUDIES Priority: High (2) Hyperbilirubinemia SNOMED Code(s): 22382186 Code(s): E80.6 - OTHER DISORDERS OF BILIRUBIN METABOLISM Priority: High (3) CAD (coronary artery disease) SNOMED Code(s): 45696599 Code(s): I25.10 - ATHSCL HEART DISEASE OF [place] CORONARY ARTERY W/O ANG PCTRS Priority: Medium Qualifiers: [place] vs. transplanted heart: [place] heart Associated angina: without angina (4) HTN (hypertension) SNOMED Code(s): 60428886 Code(s): I10 - ESSENTIAL (PRIMARY) HYPERTENSION (5) History of coronary artery stent placement SNOMED Code(s): 019341555, 349149653 Code(s): Z95.5 - PRESENCE OF CORONARY ANGIOPLASTY IMPLANT AND GRAFT Priority: High (6) Hx of myocardial infarction SNOMED Code(s): 724737695 Code(s): I25.2 - OLD MYOCARDIAL INFARCTION Priority: Low (7) Cholelithiasis SNOMED Code(s): 868397973 Code(s): K80.20 - CALCULUS OF GALLBLADDER W/O CHOLECYSTITIS W/O OBSTRUCTION Qualifiers: Cholelithiasis location: gallbladder Cholecystitis presence: without cholecystitis Biliary obstruction: with biliary obstruction Qualified Code(s ): K80.21 - Calculus of gallbladder without cholecystitis with obstruction (8) Pancreatitis SNOMED Code(s): 69379251 Code(s): K85.90 - ACUTE PANCREATITIS WITHOUT NECROSIS OR INFECTION, UNSP Priority: High Qualifiers: Chronicity: acute Pancreatitis type: biliary Problem List Initiated/Reviewed/Updated: Yes Plan: Patient continues to show slow but steady improvement. I would like to see him 3-4 weeks post discharge and arrange for outpatient cholecystectomy. Patient should remain on a low fat diet.
== END 2019-01-16 15:45 | disposition home or self-care (01) ==
LOC: MW.ED 11:59 → MW.MS 13:49
PROVIDERS: ADMIT Internal Medicine; ATTEND Internal Medicine
DX: R07.2 Precordial pain (principal); K80.21 Calculus of gallbladder without cholecystitis with obstruction; K85.10 Biliary acute pancreatitis without necrosis or infection; R94.5 Abnormal results of liver function studies; I25.10 Atherosclerotic heart disease of native coronary artery without angina pectoris; I10 Essential (primary) hypertension; I25.2 Old myocardial infarction; E80.6 Other disorders of bilirubin metabolism; N40.0 Benign prostatic hyperplasia without lower urinary tract symptoms; Z95.5 Presence of coronary angioplasty implant and graft; Z82.49 Family history of ischemic heart disease and other diseases of the circulatory system; Z79.82 Long term (current) use of aspirin; Z79.899 Other long term (current) drug therapy
CPT/HCPCS: 36415; 71045; 71045-26; 71260; 71260-26; 74183; 74183-26; 76705; 76705-26; 80053; 80074; 82150; 82962; 83690; 84484; 85025; 85610; 96360; 96361; 96372; 99283; 99285-25; A9270-GY; A9577; G0378; G0480; J1644; J7040; Q9967

== ENCOUNTER 2019-02-14 06:20 | Day surgery (SDC) | payer MEDICARE ==
[~2019-02-14 06:20] MED LIST: Lactated Ringers 1,000 ML IV SCH; cefOXitin 2 GM in Premix Bag 1 BAG IV ONE
[2019-02-14] MEDS ORDERED: Bupivacaine 0.5% 10 ML SDV ONE (07:15)
[2019-02-14] MEDS ORDERED: ceFAZolin 1 GM Vial ONE (07:16)
[2019-02-14] MEDS ORDERED: Rocuronium 100 MG/10 ML Syringe ONE (07:28)
[2019-02-14] MEDS ORDERED: Ondansetron 4 MG/2 ML SDV ONE (07:28)
[2019-02-14] MEDS ORDERED: Lidocaine 2% 5 ML SDV ONE (07:28)
[2019-02-14] MEDS ORDERED: Dexamethasone 4 MG/ML 5 ML MDV ONE (07:28)
[2019-02-14] MEDS ORDERED: fentaNYL 250 MCG/5 ML SDV ONE ×2 (07:29→09:03)
[2019-02-14] MEDS ORDERED: Propofol 200 MG/20 ML SDV ONE (07:29)
[2019-02-14] MEDS ORDERED: Midazolam 1 MG/ML 2 ML SDV ONE (07:29)
--- NOTE | 2019-02-14 07:29 | PCM.PREANE ---
Preanesthetic Assessment - Anesthesia/Transfusion/Family Hx Anesthesia History: Prior Anesthesia Without Reaction Family History of Anesthesia Reaction: No Transfusion History: No Prior Transfusion(s) - Review of Systems General: No Symptoms Pulmonary: No Symptoms Cardiovascular: No Symptoms Gastrointestinal: No Symptoms Neurological: No Symptoms Other: Reports: None - Physical Assessment NPO Status Date: 02/14/19 NPO Status Time: 06:00 O2 Sat by Pulse Oximetry: 98 Respiratory Rate: 16 Vital Signs: Last Vital Signs Temp 96.6 F 02/14/19 06:40 Pulse 82 02/14/19 06:40 Resp 16 02/14/19 06:40 BP 133/77 02/14/19 06:40 Pulse Ox 98 02/14/19 06:40 Height: 5 ft 8 in Weight: 83.915 kg ASA Class: 3 Mental Status: Alert & Oriented x3 Airway Class: Mallampati = 2 Dentition: Reports: Dentures ROM/Head Extension: Full Lungs: Clear to Auscultation, Normal Respiratory Effort Cardiovascular: Regular Rate, Regular Rhythm, Irregular Rhythm (ectopy, not fibrillation) - Allergies Allergies/Adverse Reactions: Allergies Allergy/AdvReac Type Severity Reaction Status Date / Time No Known Allergies Allergy Verified 02/11/19 09:45 - Blood Blood Available: No - Anesthesia Plan Pre-Op Medication Ordered: None - Acknowledgements Anesthesia Type Planned: General Anesthesia Pt an Appropriate Candidate for the Planned Anesthesia: Yes Alternatives and Risks of Anesthesia Discussed w Pt/Guardian: Yes Pt/Guardian Understands and Agrees with Anesthesia Plan: Yes Additional Comments: anes prob list: s/p ami- stent 4-5 yrs ago- last dose of asa was yesterday, BPH , HTN- stopped meka- took b nereyda this am, PreAnesthesia Questionnaire HEENT History: Reports: Hard of Hearing, Other (See Below) Other HEENT History: wears glasses, has upper and lower dentures and bilateral hearing aides Cardiovascular History: Reports: High Cholesterol, Hypertension, [place] Respiratory History: Reports: None Gastrointestinal History: Reports: Hiatal Hernia Genitourinary History: Reports: Renal Calculus Other Genitourinary History: Enlarged prostate, kidney stones Musculoskeletal History: Reports: None Neurological History: Reports: None - Infectious Disease History Infectious Disease History: Reports: Chicken Pox, Measles, Mumps - Past Surgical History Head Surgeries/Procedures: Reports: None Cardiovascular Surgical History: Reports: Coronary Artery Stent Other Cardiovascular Surgeries/Procedures: [place] with stent, no chest pain of SOB since Male Surgical History: Reports: Lithotripsy (ES[facility]) - SUBSTANCE USE Smoking Status *Q: Never Smoker Recreational Drug Use History: No - HOME MEDS Home Medications: Home Meds Doxazosin [Cardura] 2 mg PO BEDTIME 01/14/19 [History] Finasteride [Proscar] 5 mg PO DAILY 01/14/19 [History] Lisinopril [Prinivil] 5 mg PO QAM 01/14/19 [History] Metoprolol Succinate 50 mg PO QAM 01/14/19 [History] Omeprazole 10 mg PO ACBREAKFAST 01/14/19 [History] atorvaSTATin Calcium [Lipitor] 80 mg PO DAILY 01/14/19 [History] Aspirin [Adult Low Dose Aspirin EC] 81 mg PO DAILY 02/11/19 [History] - CURRENT (IN HOUSE) MEDS Current Meds: Current Medications Lactated Ringer's (Ringers, Lactated) 1,000 mls @ 125 mls/hr IV ASDIRECTED [facility] Last Admin: 02/14/19 06:50 Dose: 125 mls/hr Discontinued Medications Bupivacaine HCl (Sensorcaine-Mpf 0.5%) Confirm Administered Dose 30 ml .ROUTE .STK-MED ONE Stop: 02/14/19 07:16 Cefazolin Sodium (Ancef) Confirm Administered Dose 1 gm .ROUTE .STK-MED ONE Stop: 02/14/19 07:17 Cefoxitin Sodium 2 gm/ Premix 50 mls @ 100 mls/hr IV ONETIME ONE Stop: 02/14/19 06:29
[2019-02-14] MEDS ORDERED: cefOXitin 1 GM Vial ONE (07:48)
[2019-02-14] MEDS ORDERED: Sodium Chloride 0.9% 20 ML ONE (07:48)
[2019-02-14] MEDS ORDERED: ePHEDrine 50 MG/ML SDV ONE (08:06)
[2019-02-14] MEDS ORDERED: Neostigmine Methylsulfate 1 MG/ML 5 ML Syringe ONE (08:19)
[2019-02-14] MEDS ORDERED: Glycopyrrolate 0.2 MG/ML SDV ONE (08:19)
[2019-02-14] MEDS ORDERED: Morphine 10 MG/ML Syringe IVPUSH PRN (09:34)
[2019-02-14] MEDS ORDERED: Acetaminophen/HYDROcodone 325-5 MG Tab PO PRN (09:34)
--- NOTE | 2019-02-14 09:37 | PCM.OPNOTE ---
- General Post-Op/Procedure Note Date of Surgery/Procedure: 02/14/19 Operative Procedure(s): Laparoscopic cholecystectomy Pre Op Diagnosis: Gallstone pancreatitis Post-Op Diagnosis: Acute and chronic cholecystitis with cholelithiasis Anesthesia Technique: General ET Tube (ASA III) Primary Surgeon: Mina Chiu Security System Engineer: Teri Deshpande Fluid Replacement, Intraop: 1,500 Output, Urine Amount: 150 EBL in mLs: 20 Condition: Good Free Text/Narrative:: DICTATION 705129 CPT CODE 75520
[2019-02-14] MEDS ORDERED: Lactated Ringers 1,000 ML IV SCH (09:45)
--- NOTE | 2019-02-14 10:04 | PCM.POSTAN ---
POST ANESTHESIA ASSESSMENT - MENTAL STATUS Mental Status: Alert, Oriented - RESPIRATORY Respiratory Status: Respiratory Rate WNL, Airway Patent, O2 Saturation Stable - CARDIOVASCULAR CV Status: Pulse Rate WNL, Blood Pressure Stable - GASTROINTESTINAL GI Status: No Symptoms - POST OP HYDRATION Hydration Status: Adequate & Stable
--- NOTE | 2019-02-14 12:58 | PCM48HPAN ---
Post Anesthesia Note - EVALUATION WITHIN 48HRS OF ANESTHETIC Vital Signs in Normal Range: Yes Patient Participated in Evaluation: Yes Respiratory Function Stable: Yes Airway Patent: Yes Cardiovascular Function Stable: Yes Hydration Status Stable: Yes Pain Control Satisfactory: Yes Nausea and Vomiting Control Satisfactory: Yes Mental Status Recovered: Yes Resp Rate: 16 - COMMENTS/OBSERVATIONS Free Text/Narrative:: surgeon requests pt not be discharged until he has voided
--- NOTE | 2019-02-14 16:22 | OR ---
SURGEON: Mina Chiu M.D. DATE OF PROCEDURE: 02/14/2019 OPERATION PERFORMED: Laparoscopic cholecystectomy. PRIMARY SURGEON: Mina Chiu MD. COD CLERK: assistant chief nursing officer: STEVEN Madison. ANESTHESIA: General endotracheal. ASA CLASSIFICATION: III. PREOPERATIVE DIAGNOSIS: Gallstone pancreatitis. POSTOPERATIVE DIAGNOSIS: Acute on chronic cholecystitis with cholelithiasis. ESTIMATED BLOOD LOSS: 20 mL. INTRAOPERATIVE FLUID REPLACEMENT: 1500 mL of crystalloid. INTRAOPERATIVE URINARY OUTPUT: 150 mL. DESCRIPTION OF PROCEDURE: The patient was taken to the operating room and placed on the operating table in the supine position. Time-out was called for appropriate identification of the patient and procedure. Thigh-high TEDs and sequential compression boots were placed. Following satisfactory attainment of general endotracheal anesthesia, a Vasquez catheter was placed in the patient's urinary bladder. The abdomen was prepped with DuraPrep solution, sterile drapes were applied. The skin just below the umbilicus was infiltrated with 0.5% Marcaine solution. Skin incision was made and deepened through the subcutaneous tissue obtaining hemostasis with the use of electrocautery. The Veress needle was introduced into the peritoneal cavity. Saline drop test was positive. Carbon dioxide pneumoperitoneum was established with the relief set at 13 cm of water. Once a satisfactory pneumoperitoneum was established, 12 mm subxiphoid, 5 mm midclavicular, and 5 mm anterior axillary ports were placed. Each incision had preemptively been infiltrated with 0.5% Marcaine solution. The gallbladder was grasped, adhesions were taken down. There were dense adhesions to the cholecystohepatic triangle, but I was able to gently free this up and tease out the cystic duct and cystic artery. These structures were serially hemoclipped and divided with the laparoscopic Metzenbaum scissors. The gallbladder was then dissected away from its bed using electrocautery. Some bile, but no stones were spilled. Once the gallbladder was amputated, this was placed in an Endo Catch. The right upper quadrant was then inspected for hemostasis. The bed of the gallbladder showed minimal oozing and no bile leak. The right upper quadrant was irrigated with sterile saline solution and all fluid was aspirated. Surgicel was placed into the bed of the gallbladder. The right hemidiaphragm was then irrigated with 250 mL of saline with 20 mL of 0.5% Marcaine solution. That fluid was left in place. The Endo Catch containing gallbladder was now removed through the subxiphoid incision. The incision was inspected for hemostasis and small bleeding sites were electrocoagulated. Under camera vision, 5 mm anterior axillary and midclavicular ports were removed and finally the infraumbilical camera and port were removed. Again, the wounds were inspected for hemostasis, no bleeding was noted. The subxiphoid and infraumbilical incisions were closed in 2 layers approximating the subcutaneous tissue with 3-0 Vicryl and the skin with subcuticular 4-0 Monocryl. The anterior axillary and midclavicular incisions were closed with subcuticular 4-0 Monocryl. All incisions were Steri- Stripped and dressed with sterile Tegaderm pads. Sponge, needle, and instrument counts were all correct. Vasquez catheter was removed prior to emergence from anesthesia. Following emergence from anesthesia and extubation, the patient was taken to recovery room in stable condition. WADE / SAL /[id number]
== END 2019-02-14 14:12 | disposition home or self-care (01) ==
LOC: MW.SDS 06:20
PROVIDERS: ATTEND Surgery
DX: K80.12 Calculus of gallbladder with acute and chronic cholecystitis without obstruction (principal); I10 Essential (primary) hypertension; N40.0 Benign prostatic hyperplasia without lower urinary tract symptoms; E78.00 Pure hypercholesterolemia, unspecified; Z79.82 Long term (current) use of aspirin; Z79.899 Other long term (current) drug therapy
CPT/HCPCS: 47562; J0694; J1100; J2001; J2250; J2405; J2704; J3010; J3490; J7120; 00790; 88304; J0690

== ENCOUNTER 2019-02-18 00:29 | Emergency (ER) | payer MEDICARE ==
--- NOTE | 2019-02-18 00:55 | EDM.PDOC ---
ED HPI GENERAL MEDICAL PROBLEM - General Chief Complaint: Genitourinary Problem Stated Complaint: TROUBLE URINATING Time Seen by Provider: 02/18/19 00:41 - History of Present Illness INITIAL COMMENTS - FREE TEXT/NARRATIVE: HISTORY AND PHYSICAL: History of present illness: Patient is a 78-year-old white male status post cholecystectomy with postoperative urinary retention and just had his Vasquez catheter discontinued yesterday was not been able to urinate since approximately 6 PM. He denies fever chills nausea vomiting or other complaints Review of systems: As per history of present illness and below otherwise all systems reviewed and negative. Past medical history: As per history of present illness and as reviewed below otherwise noncontributory. Surgical history: As per history of present illness and as reviewed below otherwise noncontributory. Social history: No reported history of drug or alcohol abuse. Family history: As per history of present illness and as reviewed below otherwise noncontributory. Physical exam: HEENT: Atraumatic, normocephalic, pupils reactive, negative for conjunctival pallor or scleral icterus, mucous membranes moist, throat clear, neck supple, nontender, trachea midline. Lungs: Clear to auscultation, breath sounds equal bilaterally, chest nontender. Heart: S1S2, regular, negative for clicks, rubs, or JVD. Abdomen: Soft, nondistended, mild suprapubic tenderness to deep palpation. Negative for masses or hepatosplenomegaly. Negative for costovertebral tenderness. Pelvis: Stable nontender. Genitourinary: Deferred. Rectal: Deferred. Extremities: Atraumatic, negative for cords or calf pain. Neurovascular unremarkable. Neuro: Awake, alert, oriented. Cranial nerves II through XII unremarkable. Cerebellum unremarkable. Motor and sensory unremarkable throughout. Exam nonfocal. Diagnostics: CBC CMP UA Therapeutics: Vasquez catheter with leg bag Impression: #1 postoperative urinary retention Definitive disposition and diagnosis as appropriate pending reevaluation and review of above. suprapubic Pain Score (Numeric/FACES): 6 - Related Data Allergies Allergy/AdvReac Type Severity Reaction Status Date / Time No Known Allergies Allergy Verified 02/18/19 00:52 Home Meds: Home Meds Doxazosin [Cardura] 2 mg PO BEDTIME 01/14/19 [History] Finasteride [Proscar] 5 mg PO DAILY 01/14/19 [History] Lisinopril [Prinivil] 5 mg PO QAM 01/14/19 [History] Metoprolol Succinate 50 mg PO QAM 01/14/19 [History] Omeprazole 10 mg PO ACBREAKFAST 01/14/19 [History] atorvaSTATin Calcium [Lipitor] 80 mg PO DAILY 01/14/19 [History] Aspirin [Adult Low Dose Aspirin EC] 81 mg PO DAILY 02/11/19 [History] Acetaminophen/HYDROcodone [[place] 325-5 MG] 1 tab PO Q6H PRN #15 tablet 02/14/19 [Rx] Past Medical History HEENT History: Reports: Hard of Hearing, Other (See Below) Other HEENT History: wears glasses, has upper and lower dentures and bilateral hearing aides Cardiovascular History: Reports: High Cholesterol, Hypertension, SC Respiratory History: Reports: None Gastrointestinal History: Reports: Hiatal Hernia Genitourinary History: Reports: Renal Calculus Other Genitourinary History: Enlarged prostate, kidney stones Musculoskeletal History: Reports: None Neurological History: Reports: None - Infectious Disease History Infectious Disease History: Reports: Chicken Pox, Measles, Mumps - Past Surgical History Head Surgeries/Procedures: Reports: None Cardiovascular Surgical History: Reports: Coronary Artery Stent Other Cardiovascular Surgeries/Procedures: SC with stent, no chest pain of SOB since Male Surgical History: Reports: Lithotripsy ([facility]) Social & Family History - Family History Family Medical History: Noncontributory Cardiac: Reports: SC Other Cardiac Family History: Both parents and all 7 siblings have had SC's. - Caffeine Use Caffeine Use: Reports: Coffee Other Caffeine Use: 2 cups/day - Living Situation & Occupation Living situation: Reports: Occupation: Retired ED ROS GENERAL - Review of Systems Review Of Systems: ROS reveals no pertinent complaints other than HPI. ED EXAM, GENERAL - Physical Exam Exam: See Below (See dictation) Course - Vital Signs Last Recorded V/S: Last Vital Signs Temp 36.2 C 02/18/19 00:29 Pulse 82 02/18/19 00:29 Resp 18 02/18/19 00:29 BP 183/88 H 02/18/19 00:29 Pulse Ox 97 02/18/19 00:29 - Orders/Labs/Meds Orders: Active Orders 24 hr Category Date Time Status Insert Vasquez Catheter [Insert Urinary Catheter] [OM.PC] Care 02/18/19 01:00 Ordered Q24H Urinary Catheter Assessment [RC] ASDIRECTED Care 02/18/19 00:46 Active Labs: Laboratory Tests 02/18/19 02/18/19 02/18/19 Range/Units 00:45 00:55 00:55 WBC 7.38 (4.0-11.0) K/uL RBC 4.20 L (4.50-5.90) M/uL Hgb 13.6 (13.0-17.0) g/dL Hct 39.7 (38.0-50.0) % MCV 94.5 (80.0-98.0) fL MCH 32.4 H (27.0-32.0) pg MCHC 34.3 (31.0-37.0) g/dL RDW Std Deviation 42.3 (28.0-62.0) fl RDW Coeff of Augusto 13 (11.0-15.0) % Plt Count 127 L (150-400) K/uL MPV 11.30 (7.40-12.00) fL Add Manual Diff YES Neutrophils % (Manual) 54 (48.0-80.0) % Lymphocytes % (Manual) 33 (16.0-40.0) % Monocytes % (Manual) 7 (0.0-15.0) % Eosinophils % (Manual) 5 (0.0-7.0) % Basophils % (Manual) 1 (0.0-1.5) % Absolute Seg Neuts 4.0 (1.4-5.7) Lymphocytes # (Manual) 2.4 (0.6-2.4) Monocytes # (Manual) 0.5 (0.0-0.8) Eosinophils # (Manual) 0.4 (0.0-0.7) Basophils # (Manual) 0.1 (0.0-0.1) Sodium 142 (136-148) mmol/L Potassium 3.7 (3.5-5.1) mmol/L Chloride 108 H (98-107) mmol/L Carbon Dioxide 27.2 (21.0-32.0) mmol/L BUN 18 (7.0-18.0) mg/dL Creatinine 1.2 (0.8-1.3) mg/dL Est Cr Clr Drug Dosing TNP Estimated GFR (MDRD) 58.4 ml/min Glucose 122 H (74-106) mg/dL Calcium 9.1 (8.5-10.1) mg/dL Total Bilirubin 1.1 H (0.2-1.0) mg/dL AST 20 (15-37) IU/L ALT 32 (14-63) IU/L Alkaline Phosphatase 74 (46-116) U/L Total Protein 6.7 (6.4-8.2) g/dL Albumin 3.1 L (3.4-5.0) g/dL Globulin 3.6 (2.6-4.0) g/dL Albumin/Globulin Ratio 0.9 (0.9-1.6) Urine Color YELLOW Urine Appearance SLT CLOUDY Urine pH 6.5 (5.0-8.0) Ur Specific [place] 1.015 (1.001-1.035) Urine Protein NEGATIVE (NEGATIVE) mg/dL Urine Glucose (UA) NEGATIVE (NEGATIVE) mg/dL Urine Ketones NEGATIVE (NEGATIVE) mg/dL Urine Occult Blood MODERATE H (NEGATIVE) Urine Nitrite NEGATIVE (NEGATIVE) Urine Bilirubin NEGATIVE (NEGATIVE) Urine Urobilinogen 2.0 H (<2.0) EU/dL Ur Leukocyte Esterase NEGATIVE (NEGATIVE) Urine RBC 1-4 (0-2/HPF) Urine WBC 0-1 (0-5/HPF) Ur Epithelial Cells RARE (NONE-FEW) Urine Bacteria RARE (NEGATIVE) Departure - Departure Time of Disposition: 01:59 Disposition: Home, Self-Care 01 Condition: Good Clinical Impression: Urinary retention - Discharge Information Referrals: PCP,None [Primary Care Provider] - Forms: ED Department Discharge Additional Instructions: The following information is given to patients seen in the emergency department who are being discharged to home. This information is to outline your options for follow-up care. We provide all patients seen in our emergency department with a follow-up referral. The need for follow-up, as well as the timing and circumstances, are variable depending upon the specifics of your emergency department visit. If you don't have a primary care physician on staff, we will provide you with a referral. We always advise you to contact your personal physician following an emergency department visit to inform them of the circumstance of the visit and for follow-up with them and/or the need for any referrals to a consulting specialist. The emergency department will also refer you to a specialist when appropriate. This referral assures that you have the opportunity for followup care with a specialist. All of these measure are taken in an effort to provide you with optimal care, which includes your followup. Under all circumstances we always encourage you to contact your private physician who remains a resource for coordinating your care. When calling for followup care, please make the office aware that this follow-up is from your recent emergency room visit. If for any reason you are refused follow-up, please contact the [facility] emergency department at and asked to speak to the emergency department charge nurse. Vasquez catheter leg bag as discussed Cipro as prescribed follow-up with urology and/or general surgery as discussed return as needed as discussed - My Orders Last 24 Hours: My Active Orders 02/18/19 00:46 Urinary Catheter Assessment [RC] ASDIRECTED 02/18/19 01:00 Insert Vasquez Catheter [Insert Urinary Catheter] [OM.PC] Q24H - Assessment/Plan Last 24 Hours: My Active Orders 02/18/19 00:46 Urinary Catheter Assessment [RC] ASDIRECTED 02/18/19 01:00 Insert Vasquez Catheter [Insert Urinary Catheter] [OM.PC] Q24H
[2019-02-18 01:46] LABS: BLOOD UREA NITROGEN,BUN 18 mg/dL (7.0-18.0); CARBON DIOXIDE,CO2 27.2 mmol/L (21.0-32.0); CHLORIDE,CL 108 mmol/L (98-107); GLUCOSE RANDOM 122 mg/dL (74-106); POTASSIUM,K 3.7 mmol/L (3.5-5.1); SODIUM,NA 142 mmol/L (136-148)
== END 2019-02-18 02:30 | disposition home or self-care (01) ==
LOC: MW.ED 00:29
DX: N99.89 Other postprocedural complications and disorders of genitourinary system (principal); R33.9 Retention of urine, unspecified; I10 Essential (primary) hypertension; E78.00 Pure hypercholesterolemia, unspecified; I25.2 Old myocardial infarction; Z79.82 Long term (current) use of aspirin; Z79.899 Other long term (current) drug therapy
CPT/HCPCS: 36415; 51702; 51798; 80053; 81001; 85025; 99283

== ENCOUNTER 2024-06-23 08:57 | Day surgery (SDC) | payer MEDICARE ==
[~2024-06-23 08:57] MED LIST changes: +Albuterol 0.083% 2.5 MG/3 ML Neb Soln NEB PRN; +HYDROmorphone 1 MG/ML Syringe IVPUSH PRN; -Lactated Ringers 1,000 ML IV SCH; +Metoclopramide 10 MG/2 ML SDV IVPUSH PRN; +Morphine 2 MG/ML SYRINGE IVPUSH PRN; +Naloxone 0.4 MG/ML SDV IVPUSH PRN; +Ondansetron 4 MG/2 ML SDV IVPUSH PRN; +Phenylephrine HCl In 0.9% NaCl 1 MG/10 ML Syringe IVPUSH PRN; +ceFAZolin 2 GM in Sodium Chloride 0.9% 50 ML IV ONE; -cefOXitin 2 GM in Premix Bag 1 BAG IV ONE; +fentaNYL 50 MCG/ML SDV IVPUSH PRN
[2024-06-23] MEDS ORDERED: Propofol 200 MG/20 ML SDV ONE (09:07)
[2024-06-23] MEDS ORDERED: fentaNYL 100 MCG/2 ML SDV ONE (09:07)
[2024-06-23] MEDS ORDERED: ceFAZolin 1 GM Vial ONE (09:08)
[2024-06-23] MEDS ORDERED: Bupivacaine 0.5% 30 ML SDV ONE (09:08)
[2024-06-23] MEDS ORDERED: Water For Injection, Sterile 20 ML ONE (09:09)
[2024-06-23] MEDS ORDERED: dexmedeTOMIDine HCl 200 MCG/2 ML SDV ONE (09:09)
[2024-06-23] MEDS ORDERED: Bupivacaine 0.25% 30 ML SDV ONE (09:34)
[2024-06-23] MEDS: Lactated Ringers 1,000 ML IV SCH (09:47)
[2024-06-23] MEDS ORDERED: Phenylephrine HCl In 0.9% NaCl 1 MG/10 ML Syringe ONE (10:11)
[2024-06-23] MEDS ORDERED: ePHEDrine 50 MG/ML SDV ONE (10:11)
[2024-06-23] MEDS ORDERED: ceFAZolin 2 GM Vial ONE (10:11)
[2024-06-23] MEDS ORDERED: Ondansetron 4 MG/2 ML SDV ONE (10:14)
[2024-06-23] MEDS ORDERED: Dexamethasone 4 MG/ML 5 ML MDV ONE (10:14)
[2024-06-23] MEDS ORDERED: Morphine 4 MG/ML Syringe IVPUSH PRN (11:31)
[2024-06-23] MEDS ORDERED: Acetaminophen/HYDROcodone 325-5 MG Tab PO PRN (11:31)
[2024-06-23] MEDS ORDERED: Lactated Ringers 1,000 ML IV SCH (11:45)
== END 2024-06-23 13:35 | disposition home or self-care (01) ==
LOC: MW.SDS 08:57
PROVIDERS: ATTEND Surgery
DX: K40.90 Unilateral inguinal hernia, without obstruction or gangrene, not specified as recurrent (principal); I11.0 Hypertensive heart disease with heart failure; I50.42 Chronic combined systolic (congestive) and diastolic (congestive) heart failure; E78.00 Pure hypercholesterolemia, unspecified; Z79.82 Long term (current) use of aspirin; Z79.899 Other long term (current) drug therapy
CPT/HCPCS: 49505; J0131; J0665; J0690; J1100; J2371; J2405; J2704; J3010; J7120; J3490

== ENCOUNTER 2024-08-05 02:05 | Emergency (ER) | payer MEDICARE, OTHER ==
[2024-08-05 02:23] LABS: BILIRUBIN,URINE NEGATIVE (NEGATIVE); COLOR,URINE YELLOW; GLUCOSE,URINE >=1000 mg/dL (NEGATIVE); KETONES,URINE NEGATIVE (NEGATIVE); LEUKOCYTE ESTERASE,URINE NEGATIVE (NEGATIVE); NITRITE,URINE NEGATIVE (NEGATIVE); OCCULT BLOOD,URINE MODERATE (NEGATIVE); PROTEIN,URINE NEGATIVE (NEGATIVE); UROBILINOGEN,URINE 0.2 EU/dL (<2.0)
[2024-08-05 02:31] LABS: APPEARANCE,URINE HAZY; BACTERIA,URINE RARE (NEGATIVE); EPITHELIAL CELLS,URINE OCCASIONAL (NONE-FEW); RBC,URINE 15-20 (0-2/HPF); WBC,URINE 0-2 (0-5/HPF)
== END 2024-08-05 03:00 | disposition home or self-care (01) ==
LOC: MW.ED 02:05
DX: R33.9 Retention of urine, unspecified (principal); I25.2 Old myocardial infarction; I10 Essential (primary) hypertension; E78.00 Pure hypercholesterolemia, unspecified; K21.9 Gastro-esophageal reflux disease without esophagitis; Z90.49 Acquired absence of other specified parts of digestive tract; Z79.82 Long term (current) use of aspirin; Z79.899 Other long term (current) drug therapy
CPT/HCPCS: 51702; 81001; 99284

== ENCOUNTER 2024-10-30 22:12 | Emergency (ER) | payer MEDICARE ==
[2024-10-30 22:59] LABS: BASOPHILS ABSOLUTE AUTO 0.06 K/uL (0.00-0.20); BASOPHILS PERCENT AUTO 0.9 % (0.0-1.0); EOSINOPHILS ABSOLUTE AUTO 0.23 K/uL (0.00-0.45); EOSINOPHILS PERCENT AUTO 3.5 % (0.0-6.0); HEMOGLOBIN 10.6 g/dL (14.0-18.0); IMMATURE GRAN ABSOLUTE AUTO 0.02 K/uL (0.00-0.05); IMMATURE GRAN PERCENT AUTO 0.3 % (0.0-0.4); LYMPHOCYTES ABSOLUTE AUTO 1.88 K/uL (1.00-4.80); LYMPHOCYTES PERCENT AUTO 28.5 % (24.0-44.0); MEAN CORPUSCULAR HEMOGLOBIN 33.3 pg (28.0-32.0); MEAN CORPUSCULAR HGB CONC 33.1 g/dL (32.0-36.0); MEAN CORPUSCULAR VOLUME 100.6 fL (83.0-99.0); MEAN PLATELET VOLUME 10.3 fL (9.4-12.4); MONOCYTES ABSOLUTE AUTO 0.74 K/uL (0.00-0.80); MONOCYTES PERCENT AUTO 11.2 % (0.0-8.0); NEUTROPHILS ABSOLUTE AUTO 3.66 K/uL (1.80-7.70); NEUTROPHILS PERCENT AUTO 55.6 % (41.0-71.0); PLATELET COUNT,PLT 176 K/uL (150-400); RED BLOOD CELL COUNT 3.18 M/uL (4.52-5.90); WHITE BLOOD CELL COUNT,WBC 6.59 K/uL (3.9-11.3)
[2024-10-30 23:20] LABS: A/G RATIO 0.8 (0.9-1.6); ALBUMIN 2.6 g/dL (3.4-5.0); BILIRUBIN TOTAL 1.2 mg/dL (0.2-1.0); CALCIUM 8.1 mg/dL (8.5-10.1); CARBON DIOXIDE,CO2 25.8 mmol/L (21.0-32.0); CREATININE 1.5 mg/dL (0.8-1.3); EST CRCL DRUG DOSING (CG) 33.66 mL/min; POTASSIUM,K 2.9 mmol/L (3.5-5.1); PROTEIN TOTAL,TP 5.8 g/dL (6.4-8.2)
[2024-10-30 23:33] LABS: APPEARANCE,URINE CLOUDY; BILIRUBIN,URINE NEGATIVE (NEGATIVE); COLOR,URINE YELLOW; GLUCOSE,URINE >=1000 mg/dL (NEGATIVE); KETONES,URINE NEGATIVE (NEGATIVE); LEUKOCYTE ESTERASE,URINE SMALL (NEGATIVE); NITRITE,URINE NEGATIVE (NEGATIVE); OCCULT BLOOD,URINE LARGE (NEGATIVE); PROTEIN,URINE 100 mg/dL (NEGATIVE); UROBILINOGEN,URINE 0.2 EU/dL (<2.0)
[2024-10-30 23:43] LABS: BACTERIA,URINE RARE (NEGATIVE); EPITHELIAL CELLS,URINE RARE (NONE-FEW); RBC,URINE 20-30 (0-2/HPF); YEAST,URINE MANY
[2024-10-31] MEDS: Sodium Chloride 0.9% 1,000 ML IV ONE (00:24)
[2024-10-31] MEDS: Potassium Chloride 20 MEQ Tab.ER PO ONE (00:35)
== END 2024-10-31 00:35 | disposition home or self-care (01) ==
LOC: MW.ED 22:12
DX: T83.091A Other mechanical complication of indwelling urethral catheter, initial encounter (principal); E78.00 Pure hypercholesterolemia, unspecified; K21.9 Gastro-esophageal reflux disease without esophagitis; I10 Essential (primary) hypertension; N30.01 Acute cystitis with hematuria; E87.6 Hypokalemia; Z79.82 Long term (current) use of aspirin; Z79.899 Other long term (current) drug therapy; Z90.49 Acquired absence of other specified parts of digestive tract; Z85.46 Personal history of malignant neoplasm of prostate; Z90.79 Acquired absence of other genital organ(s); Z87.448 Personal history of other diseases of urinary system
CPT/HCPCS: 36415; 80053; 81001; 85025; 87086; 99283; 99284

== ENCOUNTER 2024-12-24 00:58 | Day surgery (SDC) | payer MEDICARE, OTHER ==
[2024-12-24] MEDS ORDERED: Sodium Chloride 0.9% 2.5 ML Syringe FLUSH PRN (01:27)
[2024-12-24] MEDS ORDERED: Sodium Chloride 0.9% 10 ML Syringe FLUSH PRN (01:27)
[2024-12-24] MEDS ORDERED: Sodium Chloride 0.9% 20 ML SDV IV PRN (01:27)
[2024-12-24] MEDS: Glucagon,Human Recombinant 1 MG Vial IM ONE (01:31)
[2024-12-24] MEDS ORDERED: dexmedeTOMIDine HCl 200 MCG/2 ML SDV ONE (02:07)
[2024-12-24] MEDS ORDERED: Sodium Chloride 0.9% 20 ML ONE (02:07)
[2024-12-24] MEDS ORDERED: fentaNYL 100 MCG/2 ML SDV ONE (02:07)
[2024-12-24] MEDS ORDERED: Propofol 200 MG/20 ML SDV ONE (02:10)
[2024-12-24] MEDS: Lactated Ringers 1,000 ML IV SCH (02:16)
[2024-12-24] MEDS ORDERED: Succinylcholine/Sod PF 100 MG/5 ML SYRINGE IV ONE (02:16)
[2024-12-24] MEDS ORDERED: Phenylephrine HCl In 0.9% NaCl 1 MG/10 ML Syringe ONE (02:40)
[2024-12-24] MEDS ORDERED: Lactated Ringers 1,000 ML IV SCH (03:00)
== END 2024-12-24 04:00 | disposition home or self-care (01) ==
LOC: MW.ED 00:58 → MW.SDS 01:36 → MW.MS 02:27 → MW.SDS 04:00
PROVIDERS: ATTEND Surgery
DX: T18.128A Food in esophagus causing other injury, initial encounter (principal); K22.2 Esophageal obstruction
CPT/HCPCS: 71250; 88305; 88342; 96372; 99284; J1610; J2371; J2704; J3010; J7120; 00731; 43247; 99283

== ENCOUNTER → 2025-06-17 | Emergency (ER) | payer MEDICARE, OTHER ==
[2025-06-17 10:34] LABS: BASOPHILS ABSOLUTE AUTO 0.05 K/uL (0.00-0.20); BASOPHILS PERCENT AUTO 0.6 % (0.0-1.0); EOSINOPHILS ABSOLUTE AUTO 0.09 K/uL (0.00-0.45); EOSINOPHILS PERCENT AUTO 1.2 % (0.0-6.0); IMMATURE GRAN ABSOLUTE AUTO 0.01 K/uL (0.00-0.05); IMMATURE GRAN PERCENT AUTO 0.1 % (0.0-0.4); LYMPHOCYTES ABSOLUTE AUTO 1.85 K/uL (1.00-4.80); LYMPHOCYTES PERCENT AUTO 23.9 % (24.0-44.0); MEAN PLATELET VOLUME 10.0 fL (9.4-12.4); MONOCYTES ABSOLUTE AUTO 0.67 K/uL (0.00-0.80); MONOCYTES PERCENT AUTO 8.7 % (0.0-8.0); NEUTROPHILS ABSOLUTE AUTO 5.07 K/uL (1.80-7.70); NEUTROPHILS PERCENT AUTO 65.5 % (41.0-71.0); NRBC ABSOLUTE 0.00 K/uL (0.00-0.02); NRBC PERCENT 0.0 /100WBC (0.0-0.2); PLATELET COUNT,PLT 142 K/uL (150-400); RED BLOOD CELL COUNT 4.70 M/uL (4.52-5.90); WHITE BLOOD CELL COUNT,WBC 7.74 K/uL (3.9-11.3)
[2025-06-17 10:55] LABS: APPEARANCE,URINE CLOUDY; GLUCOSE,URINE >1000 mg/dL (NEGATIVE); OCCULT BLOOD,URINE SMALL (NEGATIVE)
[2025-06-17 11:00] LABS: A/G RATIO 0.8 (0.9-1.6); ALANINE AMINOTRANSFERASE,ALT 19.0 IU/L (14-63); ASPARTATE AMNIOTRANSFERASE,AST 22.0 IU/L (15-37); BILIRUBIN TOTAL 1.2 mg/dL (0.2-1.0); BLOOD UREA NITROGEN,BUN 25.0 mg/dL (7.0-18.0); CARBON DIOXIDE,CO2 26.5 mmol/L (21.0-32.0); CHLORIDE,CL 110.0 mmol/L (98-107); CREATININE 1.8 mg/dL (0.8-1.3); EST CRCL DRUG DOSING (CG) 27.54 mL/min; GLUCOSE RANDOM 94.0 mg/dL (74-106); POTASSIUM,K 4.2 mmol/L (3.5-5.1); PROTEIN TOTAL,TP 6.7 g/dL (6.4-8.2); SODIUM,NA 143.0 mmol/L (136-148)
[2025-06-17 11:01] LABS: ESTIMATED GFR 36.0 mL/min (>60)
== END | disposition left against medical advice (07) ==
LOC: MW.ED 09:21
DX: N17.9 Acute kidney failure, unspecified (principal); R33.9 Retention of urine, unspecified; N39.0 Urinary tract infection, site not specified; I10 Essential (primary) hypertension; K21.9 Gastro-esophageal reflux disease without esophagitis; E78.00 Pure hypercholesterolemia, unspecified; Z48.816 Encounter for surgical aftercare following surgery on the genitourinary system; Z79.82 Long term (current) use of aspirin; Z79.899 Other long term (current) drug therapy; Z90.49 Acquired absence of other specified parts of digestive tract
CPT/HCPCS: 36415; 51798; 80053; 81001; 85025; 87086; 99283; A9270-GY

== ENCOUNTER 2025-06-22 08:56 | Emergency (ER) | payer MEDICARE, OTHER | END 2025-06-22 10:32 | disposition home or self-care (01) | LOC: MW.ED 08:56 | DX: Z02.89 Encounter for other administrative examinations (principal); I10 Essential (primary) hypertension; E78.00 Pure hypercholesterolemia, unspecified; K21.9 Gastro-esophageal reflux disease without esophagitis; Z79.82 Long term (current) use of aspirin; Z79.899 Other long term (current) drug therapy; Z90.49 Acquired absence of other specified parts of digestive tract | CPT/HCPCS: 99283 ==